=== PATIENT | female | born 1990 | race Caucasian/White ===

== ENCOUNTER 2020-04-01 18:39 | Emergency (ER) | payer OTHER ==
[~2020-04-01] VITALS: Ht 160 cm; Wt 78.9 kg
[~2020-04-01 18:39] MED LIST: ACHD5005 PO; ALBU8.5H2 IH; CPR500T PO; DOXY100C2 PO; IBUP-15 PO; KAOPECTATE; NAPR550T PO; NITR100C3 PO; PRD20T PO; PRM25SURX PR; PRM25T PO; SULF1TAB38 PO
[2020-04-01] MEDS ORDERED: fentaNYL INJECTION 100 MCG/2 ML AMP ONE (19:02)
[2020-04-01] MEDS ORDERED: KETOROLAC 30 MG/ML VIAL ONE (19:02)
[2020-04-01] MEDS ORDERED: KETOROLAC 30 MG/ML VIAL IM ONE (19:15)
[2020-04-01] MEDS ORDERED: fentaNYL INJECTION 100 MCG/2 ML AMP IM ONE (19:15)
--- NOTE | 2020-04-01 19:38 | ED Integumentary General ---
General Chief Complaint: Skin/Wound Problems Stated Complaint: DX : PEDRO INFECTION, PAIN Nursing Triage Note: painful area to left inner groin from I/D 03/30/20 Source: patient, family Exam Limitations: no limitations History of Present Illness Date Seen by Provider: Apr 01, 2020 Time Seen by Provider: 19:00 Initial Comments This 30-year-old woman presents to the emergency room as a follow-up to an abscess I&D of the left groin that was performed elsewhere on March 30. 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 She is to follow-up with a surgeon but has not procured an appointment yet. She needs her packing removed. She is having significant pain in this area and is in distress due to the pain. She does not appear to have any cellulitis or inflammation around the abscess. There is no active drainage. They were instructed to pull a centimeter of packing out daily and cut it off. However, she is in so much pain and they cannot do that at home. She is on doxycycline. She has run out of her pain medication. She denies any fevers. Allergies and Home Medications Allergies Coded Allergies: Penicillins (Verified Allergy, Unknown, RASH, 04/01/20) Home Medications Hydrocodone/Acetaminophen 1 Each Tablet, 1 TAB PO Q4H PRN for PAIN-BREAKTHROUGH Prescribed by: KAITLIN CORDOVA on 04/01/201940 Patient Home Medication List Home Medication List Reviewed: Yes Review of Systems Review of Systems Constitutional: no symptoms reported EENTM: no symptoms reported Respiratory: no symptoms reported Cardiovascular: no symptoms reported Gastrointestinal: no symptoms reported Genitourinary: no symptoms reported : No Musculoskeletal: no symptoms reported Skin: see HPI Psychiatric/Neurological: No Symptoms Reported Past Rnpokzd-Xqeezy-Pexdlq Hx Past Med/Social Hx: Reviewed Nursing Past Med/Soc Hx Patient Social History Alcohol Use: Occasionally Uses Drug of Choice: denies Smoking Status: Current Everyday Smoker Type Used: Cigarettes 2nd Hand Smoke Exposure: Yes Recent Infectious Disease Expo: No Recent Hopitalizations: No Immunizations Up To Date Tetanus Booster (TDap): Less than 5yrs Seasonal Allergies Seasonal Allergies: No Past Medical History Surgeries: Yes Gallbladder, Orthopedic, Tubal Ligation Respiratory: No Cardiac: No Neurological: No : 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 Genitourinary: No Gastrointestinal: No Musculoskeletal: No Endocrine: No HEENT: No Cancer: No Psychosocial: No Integumentary: Yes (multiple i/d, multiple MRSA abscesses) Blood Disorders: No Physical Exam Vital Signs Vital Signs - First Documented 04/01/20 18:56 Temp 36.4 Pulse 95 Resp 20 B/P (MAP) 111/64 (80) Pulse Ox 98 O2 Delivery Room Air Capillary Refill : Less Than 3 Seconds General Appearance: WD/WN, mild distress HEENT: normal ENT inspection Cardiovascular: no edema, no murmur, tachycardia Respiratory: lungs clear, normal breath sounds, no respiratory distress Extremities: normal inspection, no pedal edema Neurologic/Psychiatric: manager social II-XII nml as tested, no motor/sensory deficits, alert, normal mood/affect, oriented x 3 Skin: warm/dry, other (Abscess in the left groin with incision open and packing extending out of the incision. There is no inflammation to suggest cellulitis. No active draining.) Progress/Results/Core Measures Results/Orders My Orders Orders - KAITLIN GOMEZ MD Fentanyl Injection (Sublimaze Injection (04/01/20 19:15) Ketorolac Injection (Toradol Injection) (04/01/20 19:15) Rx-Hydrocodone/Apap 5-325 Mg (Rx-Vicodin (04/01/20 19:45) Hydrocodone/Apap 5/325 Tablet (Lortab 5 (04/01/20 19:45) Medications Given in ED Current Medications Medications Dose Ordered Sig/Jacqueline Route Start Time Stop Time Status Last Admin Dose Admin Acetaminophen/ Hydrocodone Bitart 1 ea Q4H PRN PO 04/01/20 19:45 04/01/20 19:48 DC 04/01/20 19:46 1 EA Acetaminophen/ Hydrocodone Bitart 1 tab ONCE ONCE PO 04/01/20 19:45 04/01/20 19:46 DC 04/01/20 19:46 1 TAB Fentanyl Citrate 100 mcg ONCE ONCE IM 04/01/20 19:15 04/01/20 19:16 DC 04/01/20 19:11 100 MCG Ketorolac Tromethamine 30 mg ONCE ONCE IM 04/01/20 19:15 04/01/20 19:16 DC 04/01/20 19:11 30 MG Vital Signs/I&O 2/10/21 2/10/21 18:56 19:46 Temp 36.4 36.5 Pulse 95 79 Resp 20 16 B/P (MAP) 111/64 (80) 106/67 (80) Pulse Ox 98 97 O2 Delivery Room Air Room Air Blood Pressure Mean: 80 Progress Progress Note : Progress Note Patient was in significant amount of pain at the site of the abscess. She was given an injection of Toradol and fentanyl. Packing was then removed and the wound was redressed. We did not repack. Incision was widely open and there was no accumulation of purulent drainage. She was given a take-home pack of hydrocodone and a short prescription of additional hydrocodone. See discharge instructions for further discussion. Departure Impression Primary Impression: Abscess of left groin Disposition: HOME, SELF-CARE Condition: Improved Departure-Patient Inst. Decision time for Depature: 19:37 Referrals: FLORENCIO HARMON MD (PCP) Primary Care Physician Patient Instructions: MRSA (DC), Abscess Incision and Drainage Add. Discharge Instructions: Perform sitz baths for 15 to 20 minutes with Hibiclens soap and warm water 2-3 times a day until the abscess is improving and stops draining. Complete your antibiotics as prescribed. Use ibuprofen up to 600 mg every 6 hours as needed for primary pain control. Add hydrocodone as prescribed for pain not controlled by ibuprofen. Avoid shaving until your abscess has been resolved for several days. Exercise extreme caution when shaving. Always use a fresh razor or sanitized clippers. Wash with Hibiclens (chlorhexidine) soap after shaving. Call with questions or concerns. Return to emergency room if you have worsening condition or develop new symptoms such as fever. All discharge instructions reviewed with patient and/or family. Voiced understanding. Scripts Hydrocodone/Acetaminophen (Hydrocodone-Acetamin 5-325 mg) 1 Each Tablet 1 TAB PO Q4H PRN for PAIN-BREAKTHROUGH, #10 TAB Prov: KAITLIN GOMEZ MD 04/01/20 KAITLIN GOMEZ MD Apr 01, 2020 19:38
[2020-04-01] MEDS ORDERED: ACHD5005 PO (19:40)
[2020-04-01] MEDS ORDERED: RX-HYDROCODONE/APAP 5/325 MG #4 TAB PK PO PRN (19:45)
[2020-04-01] MEDS ORDERED: HYDROcodone/APAP 5 MG/325 MG (LORTAB) TAB PO ONE (19:45)
[2020-04-01 19:46] VITALS: BP 106/67
== END 2020-04-01 19:48 | disposition home or self-care (01) ==
LOC: EDUNIT# 18:39 → ER 18:42
DX: L02.214 Cutaneous abscess of groin (principal); F17.210 Nicotine dependence, cigarettes, uncomplicated; Z88.0 Allergy status to penicillin
CPT/HCPCS: 99284

== ENCOUNTER 2020-08-18 10:14 | Emergency (ER) | payer OTHER ==
[~2020-08-18] VITALS: Ht 160 cm; Wt 78.0 kg
--- NOTE | 2020-08-18 11:09 | ED Abdominal Pain ---
General Chief Complaint: Abdominal/GI Problems Stated Complaint: LOWER BACK PAIN, Nursing Triage Note: ARRIVED VIA WC TO ROOM 06. LEFT SIDED FLANK PAIN STARTING LAST NIGHT. Sepsis Screen: No Definite Risk Source of Information: Patient, Spouse Exam Limitations: No Limitations History of Present Illness Date Seen by Provider: Aug 18, 2020 Time Seen by Provider: 10:52 Initial Comments Patient presents ER by private conveyance from home with chief complaint that at 630 this morning she was awoken with a gripping stabbing pain that was constant in her left lower quadrant abdomen and left flank. She is never had kidney stones before. She is having no hematuria. No vomiting but mild nausea. Rates the pain is a 9 out of 10. She had her gallbladder out and has had problems with abscesses but no other significant medical history beyond asthma. She is having no shortness of breath fever chills diarrhea or constipation. Allergies and Home Medications Allergies Coded Allergies: Penicillins (Verified Allergy, Unknown, RASH, 04/01/20) Home Medications Cephalexin 500 Mg Tablet, 500 MG PO BID Prescribed by: BRIDGER GLEZ on 08/18/20 1304 Hydrocodone/Acetaminophen 1 Each Tablet, 1 TAB PO Q4H PRN for PAIN-BREAKTHROUGH Prescribed by: KAITLIN CORDOVA on 04/01/20 194 Hydrocodone/Acetaminophen 1 Each Tablet, 1 TAB PO Q6H PRN for PAIN-MODERATE (5- 7) Prescribed by: RBIDGER GLEZ on 08/18/20 1304 Ondansetron 4 Mg Tab.rapdis, 4 MG PO Q6H PRN for NAUSEA/VOMITING Prescribed by: BRIDGER GLEZ on 08/18/20 1304 Patient Home Medication List Home Medication List Reviewed: Yes Review of Systems Review of Systems Constitutional: No chills, No fever EENTM: No Blurred Vision, No Double Vision Respiratory: Denies Cough, Denies Shortness of Air Cardiovascular: Denies Chest Pain, Denies Lightheadedness Gastrointestinal: See HPI, Abdominal Pain; Denies Constipated, Denies Diarrhea; Nausea Genitourinary: See HPI; Denies Burning, Denies Discharge Musculoskeletal: No back pain, No joint pain All Other Systems Reviewed Negative Unless Noted: Yes Past Fedapgk-Rmafiu-Delbrl Hx Patient Social History Alcohol Use: Occasionally Uses Drug of Choice: denies Smoking Status: Current Everyday Smoker Type Used: Cigarettes 2nd Hand Smoke Exposure: Yes Recent Infectious Disease Expo: No Recent Hopitalizations: No Immunizations Up To Date Tetanus Booster (TDap): Less than 5yrs Seasonal Allergies Seasonal Allergies: No Past Medical History Surgeries: Yes Gallbladder, Orthopedic, Tubal Ligation Respiratory: No Cardiac: No 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 oz. 73.984955hx; 30.00 BMI Method:Stated General Appearance: WD/WN, moderate distress HEENT: PERRL/EOMI, pharynx normal Neck: full range of motion, normal inspection Respiratory: no respiratory distress, no accessory muscle use Cardiovascular: normal peripheral pulses, regular rate, rhythm Gastrointestinal: normal bowel sounds, soft Extremities: normal range of motion, normal capillary refill Neurologic/Psychiatric: alert, normal mood/affect Skin: normal color, warm/dry Progress/Results/Core Measures Results/Orders Lab Results Laboratory Tests Test 08/18/20 10:35 08/18/20 11:14 Range/Units White Blood Count 8.0 4.3-11.0 10^3/uL Red Blood Count 4.94 3.80-5.11 10^6/uL Hemoglobin 16.4 H 11.5-16.0 g/dL Hematocrit 48 35-52 % Mean Corpuscular Volume 97 80-99 fL Mean Corpuscular Hemoglobin 33 25-34 pg Mean Corpuscular Hemoglobin Concent 34 32-36 g/dL Red Cell Distribution Width 13.4 10.0-14.5 % Platelet Count 240 130-400 10^3/uL Mean Platelet Volume 9.8 9.0-12.2 fL Immature Granulocyte % (Auto) 0 % Neutrophils (%) (Auto) 67 42-75 % Lymphocytes (%) (Auto) 22 12-44 % Monocytes (%) (Auto) 8 0-12 % Eosinophils (%) (Auto) 2 0-10 % Basophils (%) (Auto) 1 0-10 % Neutrophils # (Auto) 5.4 1.8-7.8 10^3/uL Lymphocytes # (Auto) 1.8 1.0-4.0 10^3/uL Monocytes # (Auto) 0.7 0.0-1.0 10^3/uL Eosinophils # (Auto) 0.2 0.0-0.3 10^3/uL Basophils # (Auto) 0.1 0.0-0.1 10^3/uL Immature Granulocyte # (Auto) 0.0 0.0-0.1 10^3/uL Sodium Level 138 135-145 MMOL/L Potassium Level 4.3 3.6-5.0 MMOL/L Chloride Level 105 98-107 MMOL/L Carbon Dioxide Level 23 21-32 MMOL/L Anion Gap 10 5-14 MMOL/L Blood Urea Nitrogen 5 L 7-18 MG/DL Creatinine 0.73 0.60-1.30 MG/DL Estimat Glomerular Filtration Rate > 60 BUN/Creatinine Ratio 7 Glucose Level 96 70-105 MG/DL Calcium Level 9.4 8.5-10.1 MG/DL Corrected Calcium 9.1 8.5-10.1 MG/DL Total Bilirubin 0.7 0.1-1.0 MG/DL Aspartate Amino Transf (AST/SGOT) 19 5-34 U/L Alanine Aminotransferase (ALT/SGPT) 27 0-55 U/L Alkaline Phosphatase 84 40-136 U/L Total Protein 7.4 6.4-8.2 GM/DL Albumin 4.4 3.2-4.5 GM/DL Urine Color YELLOW Urine Clarity CLEAR Urine pH 7.0 5-9 Urine Specific [place] 1.020 1.016-1.022 Urine Protein NEGATIVE NEGATIVE Urine Glucose (UA) NEGATIVE NEGATIVE Urine Ketones NEGATIVE NEGATIVE Urine Nitrite NEGATIVE NEGATIVE Urine Bilirubin NEGATIVE NEGATIVE Urine Urobilinogen 0.2 < = 1.0 MG/DL Urine Leukocyte Esterase 1+ H NEGATIVE Urine RBC (Auto) NEGATIVE NEGATIVE Urine RBC 0-2 /HPF Urine WBC 10-25 H /HPF Urine Squamous Epithelial Cells 5-10 /HPF Urine Crystals NONE /LPF Urine Bacteria MODERATE H /HPF Urine Casts NONE /LPF Urine Mucus NEGATIVE /LPF Urine Culture Indicated YES My Orders Orders - BRIDGER GLEZ Ua Culture If Indicated (08/18/20 11:06) Urine Bedside (08/18/20 11:06) Cbc With Automated Diff (08/18/20 11:06) Comprehensive Metabolic Panel (08/18/20 11:06) Ketorolac Injection (Toradol Injection) (08/18/20 11:15) Ondansetron Injection (Zofran Injectio (08/18/20 11:15) Ct Abd/Pelvis Wo(Kidney Stone) (08/18/20 11:06) Ed Iv/Invasive Line Start (08/18/20 11:06) Ns Iv 500 Ml (Sodium Chloride 0.9%) (08/18/20 11:15) Urine Culture (08/18/20 11:14) Fentanyl Inj (Sublimaze Injection) (08/18/20 11:45) Medications Given in ED Current Medications Medications Dose Ordered Sig/Jacqueline Route Start Time Stop Time Status Last Admin Dose Admin Fentanyl Citrate 50 mcg ONCE ONCE IVP 08/18/20 11:45 08/18/20 11:46 DC 08/18/20 11:46 50 MCG Ketorolac Tromethamine 30 mg ONCE ONCE IVP 08/18/20 11:15 08/18/20 11:16 DC 08/18/20 11:15 30 MG Ondansetron HCl 4 mg ONCE ONCE IVP 08/18/20 11:15 08/18/20 11:16 DC 08/18/20 11:16 4 MG Sodium Chloride 500 ml @ 0 mls/hr Q0M ONCE IV 08/18/20 11:15 08/18/20 11:16 DC 08/18/20 11:17 500 MLS/HR Vital Signs/I&O 08/18/20 08/18/20 10:25 13:10 Temp 36.1 Pulse 78 79 Resp 16 16 B/P (MAP) 147/89 (108) 133/83 Pulse Ox 98 O2 Delivery Room Air Blood Pressure Mean: 108 Progress Progress Note #1: Time: 11:08 Progress Note Suspect kidney stone versus less likely diverticulitis. Plan to get a CT without IV contrast give her 500 of fluids, Toradol, Zofran and check some basic labs. Progress Note #2: Time: 12:56 Progress Note Either a radio nonopaque stone or the stone has passed. No other significant pathology to explain her symptoms on CT or lab. Patient is comfortable now. We are going to let her follow-up with urology outpatient. Diagnostic Imaging Diagonstic Imaging: CT (Without IV contrast kidney stone study) Plain Films/CT/US/NM/MRI: abdomen, pelvis Comments NAME: YAMILE HEALY [facility] REC#: [id number] PT STATUS: REG ER : 1990 PHYSICIAN: BRIDGER GLEZ MD ADMIT DATE: 08/18/20/ER Draft Date of Exam:08/18/20 CT ABD/PELVIS WO(KIDNEY STONE) PROCEDURE: CT abdomen and pelvis without contrast. TECHNIQUE: Multiple contiguous axial images were obtained through the abdomen and pelvis without the use of intravenous contrast. Auto Exposure Controls were utilized during the CT exam to meet ALARA standards for radiation dose reduction. DATE: August 18, 2020. COMPARISON: CT chest, abdomen, and pelvis October 10, 2011. INDICATION: 30-year-old female, left-sided flank pain. Evaluation for renal or ureteral stone. FINDINGS: There are limitations for evaluation of the abdominal organs, neoplastic processes, abscess, and limited evaluation of the vasculature relating to the lack of intravenous contrast. The visualized portions of the lung bases are clear. The heart is not enlarged. There is no pericardial effusion. The liver is unremarkable in size and contour. The patient is status post cholecystectomy. There is no biliary ductal dilation. The main pancreatic duct is not grossly dilated. Limited noncontrast evaluation of the pancreatic parenchyma is unremarkable. The spleen is normal in size. The adrenal glands are unremarkable. There is a 4 mm nonobstructing right renal stone on axial image 32. The urinary collecting systems are not distended. There is no identified ureteral stone. The urinary bladder is underdistended and not well evaluated. The left ovary appears prominent in size. The left adnexa measures roughly 6.6 x 4.6 cm in axial dimension. There is likely at least a cystic left adnexal mass present. There is also a questionable low-attenuation right adnexal mass measuring up to 2.1 cm in size. There is a small amount of free pelvic fluid which is potentially physiologic. The intestinal tract is not distended. There is no evidence to suggest acute appendicitis. There is no free intraperitoneal air. There is no drainable fluid collection. There is no identified abnormally enlarged lymph node in the abdomen or pelvis meeting CT size criteria for adenopathy. There are bilateral L5 pars interarticularis defects without grade 1 anterolisthesis of L5 on S1. IMPRESSION: 1. There is a 4 mm nonobstructing right renal stone. No ureteral stone or hydronephrosis. 2. Nonspecific prominence of the left adnexa with suspicion of a nonspecific left adnexal mass. There is also likely a low-attenuation right adnexal lesion measuring 2.1 cm in size. Further evaluation with pelvic ultrasound is recommended. 3. Small amount of free pelvic fluid which is possibly physiologic. 4. Bilateral L5 pars interarticularis defects without current anterolisthesis of L5 on S1. Dictated on workstation # [id number] Dict: 08/18/20 1142 Trans: 08/18/20 1158 [id number] Interpreted by: FEDERICO GRAMAJO MD Electronically signed by: Reviewed: Reviewed by Me Departure Impression Primary Impression: Kidney stones Disposition: HOME, SELF-CARE Condition: Stable Departure-Patient Inst. Decision time for Depature: 13:01 Referrals: FLORENCIO HARMON MD (PCP/Family) Primary Care Physician CÉSAR BRANDT MD Patient Instructions: Kidney Stone Diet, Kidney Stones (DC) Add. Discharge Instructions: We presume that you passed a kidney stone and was missed before the CT scan was obtained. You can follow-up with the urologist, Dr. Brandt by calling for an appointment. You may also discuss this with your primary care doctor. Expect your symptoms to improve over the next day to 2 days. Tylenol 650 mg every 8 hours as necessary for pain. Ibuprofen 800 mg every 8 hours necessary for pain. Hydrocodone 1 tablet every 6 hours as necessary for breakthrough pain. Hydrocodone will cause drowsiness as well as constipation and you should consider using MiraLAX or Colace to stay regular. Ondansetron/Zofran 1 tablet under the tongue every 6 hours as necessary for nausea or vomiting. Keflex 1 capsule twice a day for the next week to prevent urinary tract infection. Promptly return to the ER if you have fever, new or worsening intractable pain, nausea or other worrisome symptoms. All discharge instructions reviewed with patient and/or family. Voiced understanding. Scripts Cephalexin (Cephalexin) 500 Mg Tablet 500 MG PO BID for 7 Days, #14 TAB 0 Refills Prov: BRIDGER GLEZ 08/18/20 Ondansetron (Ondansetron Odt) 4 Mg Tab.rapdis 4 MG PO Q6H PRN for NAUSEA/VOMITING, #8 TAB 0 Refills Prov: BRIDGER GLEZ 08/18/20 Hydrocodone/Acetaminophen (Hydrocodone-Acetamin 5-325 mg) 1 Each Tablet 1 TAB PO Q6H PRN for PAIN-MODERATE (5-7), #10 TAB 0 Refills Prov: BRIDGER GLEZ 08/18/20 Work/School Note: Work Release Form Date Seen in the Emergency Department: Aug 18, 2020 Return to Work: Aug 20, 2020 Restrictions: No Restrictions Copy Copies To 1: CÉSAR BRANDT MD, TITUS J Aug 18, 2020 11:09
[2020-08-18 11:13] LABS: BASOPHILS # (AUTO) 0.1 10^3/uL (0.0-0.1); BASOPHILS % (AUTO) 1 % (0-10); EOSINOPHILS # (AUTO) 0.2 10^3/uL (0.0-0.3); EOSINOPHILS % (AUTO) 2 % (0-10); HEMATOCRIT 48 % (35-52); HEMOGLOBIN 16.4 g/dL (11.5-16.0); LYMPHOCYTES # (AUTO) 1.8 10^3/uL (1.0-4.0); LYMPHOCYTES % (AUTO) 22 % (12-44); MEAN CORPUSCULAR HEMOGLOBIN 33 pg (25-34); MEAN CORPUSCULAR HGB CONC 34 g/dL (32-36); MEAN CORPUSCULAR VOLUME 97 fL (80-99); MEAN PLATELET VOLUME 9.8 fL (9.0-12.2); MONOCYTES # (AUTO) 0.7 10^3/uL (0.0-1.0); MONOCYTES % (AUTO) 8 % (0-12); NEUTROPHILS # (AUTO) 5.4 10^3/uL (1.8-7.8); NEUTROPHILS % (AUTO) 67 % (42-75); PLATELET COUNT 240 10^3/uL (130-400)
[2020-08-18 11:14] LABS: ALBUMIN 4.4 GM/DL (3.2-4.5); CHLORIDE 105 MMOL/L (98-107)
[2020-08-18 11:15] LABS: POTASSIUM 4.3 MMOL/L (3.6-5.0); SODIUM 138 MMOL/L (135-145)
[2020-08-18] MEDS ORDERED: ONDANSETRON 4 MG/2 ML (SDV) Z0FRAN IVP ONE (11:15)
[2020-08-18] MEDS ORDERED: KETOROLAC 30 MG/ML VIAL IVP ONE (11:15)
[2020-08-18] MEDS ORDERED: NS IV 500 ML 500 ML IV ONE (11:15)
[2020-08-18 11:16] LABS: CALCIUM 9.4 MG/DL (8.5-10.1)
[2020-08-18 11:17] LABS: GLUCOSE 96 MG/DL (70-105); TOTAL PROTEIN 7.4 GM/DL (6.4-8.2)
[2020-08-18 11:18] LABS: CARBON DIOXIDE 23 MMOL/L (21-32)
[2020-08-18 11:19] LABS: BILIRUBIN,TOTAL 0.7 MG/DL (0.1-1.0)
[2020-08-18 11:19] LABS: BILIRUBIN,URINE NEGATIVE (NEGATIVE); CLARITY,URINE CLEAR; COLOR,URINE YELLOW; GLUCOSE, URINE (UA) NEGATIVE (NEGATIVE); KETONES,URINE NEGATIVE (NEGATIVE); LEUKOCYTE ESTERASE ,URINE 1+ (NEGATIVE); NITRITE,URINE NEGATIVE (NEGATIVE); PROTEIN,URINE NEGATIVE (NEGATIVE)
[2020-08-18 11:20] LABS: ALKALINE PHOSPHATASE 84 U/L (40-136); CREATININE SERUM 0.73 MG/DL (0.60-1.30); GFR ESTIMATED > 60
[2020-08-18 11:21] LABS: BUN/CREATININE RATIO 7
[2020-08-18 11:23] LABS: ALANINE AMINOTRANSFERASE 27 U/L (0-55)
[2020-08-18 11:26] LABS: BACTERIA,URINE MODERATE /HPF; RBC,URINE 0-2 /HPF
[2020-08-18] MEDS ORDERED: fentaNYL INJ 100 MCG/2 ML AMP IVP ONE (11:45)
--- NOTE | 2020-08-18 11:59 | Diagnostic Imaging Report ---
PROCEDURE: CT abdomen and pelvis without contrast. TECHNIQUE: Multiple contiguous axial images were obtained through the abdomen and pelvis without the use of intravenous contrast. Auto Exposure Controls were utilized during the CT exam to meet ALARA standards for radiation dose reduction. DATE: August 18, 2020. COMPARISON: CT chest, abdomen, and pelvis October 10, 2011. INDICATION: 30-year-old female, left-sided flank pain. Evaluation for renal or ureteral stone. FINDINGS: There are limitations for evaluation of the abdominal organs, neoplastic processes, abscess, and limited evaluation of the vasculature relating to the lack of intravenous contrast. The visualized portions of the lung bases are clear. The heart is not enlarged. There is no pericardial effusion. The liver is unremarkable in size and contour. The patient is status post cholecystectomy. There is no biliary ductal dilation. The main pancreatic duct is not grossly dilated. Limited noncontrast evaluation of the pancreatic parenchyma is unremarkable. The spleen is normal in size. The adrenal glands are unremarkable. There is a 4 mm nonobstructing right renal stone on axial image 32. The urinary collecting systems are not distended. There is no identified ureteral stone. The urinary bladder is underdistended and not well evaluated. The left ovary appears prominent in size. The left adnexa measures roughly 6.6 x 4.6 cm in axial dimension. There is likely at least a cystic left adnexal mass present. There is also a questionable low-attenuation right adnexal mass measuring up to 2.1 cm in size. There is a small amount of free pelvic fluid which is potentially physiologic. The intestinal tract is not distended. There is no evidence to suggest acute appendicitis. There is no free intraperitoneal air. There is no drainable fluid collection. There is no identified abnormally enlarged lymph node in the abdomen or pelvis meeting CT size criteria for adenopathy. There are bilateral L5 pars interarticularis defects without grade 1 anterolisthesis of L5 on S1. IMPRESSION: 1. There is a 4 mm nonobstructing right renal stone. No ureteral stone or hydronephrosis. 2. Nonspecific prominence of the left adnexa with suspicion of a nonspecific left adnexal mass. There is also likely a low-attenuation right adnexal lesion measuring 2.1 cm in size. Further evaluation with pelvic ultrasound is recommended. 3. Small amount of free pelvic fluid which is possibly physiologic. 4. Bilateral L5 pars interarticularis defects without current anterolisthesis of L5 on S1. Dictated by: Dictated on workstation # [id number]
[2020-08-18] MEDS ORDERED: CEPH500T PO (13:04)
[2020-08-18] MEDS ORDERED: ONDA4TAB11 PO (13:04)
[2020-08-18] MEDS ORDERED: ACHD5005 PO (13:04)
[2020-08-18 13:10] VITALS: BP 133/83
== END 2020-08-18 13:10 | disposition home or self-care (01) ==
LOC: EDUNIT# 10:14 → ER 10:16
DX: N20.0 Calculus of kidney (principal); J45.909 Unspecified asthma, uncomplicated; F17.210 Nicotine dependence, cigarettes, uncomplicated
CPT/HCPCS: 36415; 74176; 80053; 81000; 84703; 85025; 87088; 96374; 96375

== ENCOUNTER → 2020-08-25 | Outpatient (CLI) | payer OTHER ==
[~2020-08-25] MED LIST changes: +CEPH500T PO; +ONDA4TAB11 PO
--- NOTE | 2020-08-25 13:21 | Diagnostic Imaging Report ---
EXAMINATION: Supine abdomen at 1:03 PM. INDICATION: Nephrolithiasis. FINDINGS: The CT abdomen/pelvis exam of 08/18/2020 noted a 4 mm nonobstructive calculus within the right kidney. There was no other evidence for nephrolithiasis or urolithiasis. On this exam, there is a 3.65 mm calcification overlying the superior pole of the right kidney. This would correspond to the finding on the CT exam. There is no other evidence for nephrolithiasis. There is no sign of a calculus along the path of the ureters either. There is no acute abnormality in the abdomen or pelvis noted otherwise. IMPRESSION: 1. The nonobstructive calculus within the right kidney seen previously is again evident and does not appear to have changed significantly. 2. There is still no evidence for nephrolithiasis in the left kidney or for urolithiasis. Dictated by: Dictated on workstation # [id number]
== END ==
LOC: RAD 12:41
PROVIDERS: ATTEND Urology
DX: N20.0 Calculus of kidney (principal)
CPT/HCPCS: 74018

== ENCOUNTER → 2020-09-21 | Outpatient (CLI) | payer OTHER ==
[~2020-09-21] MED LIST changes: +RT-ALBUTEROL SULF 2.5 MG/3 ML PRE-MIX VIAL INH ONE
== END ==
LOC: RT 09:30
PROVIDERS: ATTEND Nurse Practitioner Family
DX: J45.40 Moderate persistent asthma, uncomplicated (principal)
CPT/HCPCS: 94060; 94726; 94729

== ENCOUNTER → 2020-09-30 | Outpatient (CLI) | payer OTHER ==
[~2020-09-30] MED LIST changes: +ACET-93 PO; +BUDE10.2 IH; +CARAFATE; +CETI10TA49 PO; +NRT10C PO; +OXC5T PO; +PRILOSEC; -RT-ALBUTEROL SULF 2.5 MG/3 ML PRE-MIX VIAL INH ONE; +VITAMIN B12; +WELLBUTRIN
--- NOTE | 2020-09-30 13:08 | Diagnostic Imaging Report ---
PROCEDURE: Pelvic comp/transvaginal sonogram. TECHNIQUE: Complete transabdominal and transvaginal pelvic ultrasound was performed. In addition, limited pelvic Doppler was performed. INDICATION: Left sided pelvic pain. Uterus is anteverted measuring 8.4 x 4.3 x 4.7 cm. Endometrium is 6 cm in thickness. No myometrial mass is detected. Right ovary measures 4.2 x 2.8 x 3.0 cm, the left ovary measures 4.3 x 2.4 x 3.1 cm. There appears be a complex left ovarian cyst measuring 2.5 x 2.1 x 2.0 cm. There is blood flow to both ovaries. No free fluid is detected. IMPRESSION: Complex left ovarian cyst, likely hemorrhagic. The study is otherwise unremarkable. Dictated by: Dictated on workstation # [id number]
== END ==
LOC: RAD 11:30
PROVIDERS: ATTEND Obstetrics & Gynecology
DX: N83.202 Unspecified ovarian cyst, left side (principal)
CPT/HCPCS: 76830; 76856

== ENCOUNTER 2020-10-02 11:23 | Day surgery (SDC) | payer OTHER ==
[2020-10-02] VITALS (10 sets, daily range): BP systolic 113–143; BP diastolic 71–102
[~2020-10-02] VITALS: Ht 160.2 cm; Wt 80.9 kg
[~2020-10-02 11:23] MED LIST changes: -ACET-93 PO; -BUDE10.2 IH; -CARAFATE; -CETI10TA49 PO; -NRT10C PO; -OXC5T PO; -PRILOSEC; -VITAMIN B12; -WELLBUTRIN
[2020-10-02] MEDS ORDERED: ceFAZolin 2 GM IV Premixed 50 ML ONE (11:41)
[2020-10-02] MEDS ORDERED: BUPIVACAINE 0.25% 30 ML (SENSORCAINE) VIAL ONE (11:49)
[2020-10-02] MEDS ORDERED: proPOfol 200 MG/20 ML (DIPRIVAN) VIAL IV ONE ×2 (11:56→14:16)
[2020-10-02] MEDS ORDERED: LIDOCAINE PF 2% 5 ML (XYLOCAINE) VIAL ONE (11:56)
[2020-10-02] MEDS ORDERED: ROCURONIUM 10 MG/ML 5 ML SYRINGE IV ONE (11:56)
[2020-10-02] MEDS ORDERED: ONDANSETRON 4 MG/2 ML (SDV) Z0FRAN ONE (11:56)
[2020-10-02] MEDS ORDERED: fentaNYL INJ 100 MCG/2 ML AMP ONE (11:59)
[2020-10-02] MEDS ORDERED: MIDAZOLAM 2 MG/2 ML (VERSED) VIAL ONE (11:59)
[2020-10-02] MEDS ORDERED: ceFAZolin 2 GM IV Premixed 50 ML IV ONE (12:00)
[2020-10-02] MEDS: LACTATED RINGERS 1,000 ML IV PRN ×2 (12:01→14:20)
[2020-10-02] MEDS ORDERED: PRILOSEC (12:46)
[2020-10-02] MEDS ORDERED: WELLBUTRIN (12:46)
[2020-10-02] MEDS ORDERED: CARAFATE (12:46)
[2020-10-02] MEDS ORDERED: VITAMIN B12 (12:46)
[2020-10-02] MEDS ORDERED: CETI10TA49 PO (12:46)
[2020-10-02] MEDS ORDERED: NRT10C PO (12:46)
[2020-10-02] MEDS ORDERED: BUDE10.2 IH (12:46)
--- NOTE | 2020-10-02 13:35 | Progress Note-Pre Operative ---
Pre-Operative Progress Note H&P Reviewed The H&P was reviewed, patient examined and no changes noted. Date Seen by Provider: Oct 02, 2020 Time Seen by Provider: 13:15 Date H&P Reviewed: Oct 02, 2020 Time H&P Reviewed: 13:15 Pre-Operative Diagnosis: complex left ovarian cyst, pelvic pain DAVIE BLAS DO Oct 02, 2020 13:35
[2020-10-02] MEDS ORDERED: morphine INJ 10 MG/ML 1ML (SYR OR VIAL) ONE ×2 (14:13→14:45)
[2020-10-02] MEDS ORDERED: SEVOFLURANE (ULTANE) 15 ML INHAL SOLN ONE (14:16)
[2020-10-02] MEDS ORDERED: KETOROLAC 30 MG/ML VIAL IVP NR (14:30)
[2020-10-02] MEDS ORDERED: ACETAMINOPHEN 500 MG TAB (TYLENOL) PO PRN (14:30)
--- NOTE | 2020-10-02 14:30 | Operative Report ---
Operative Report Date of Procedure/Surgery Oct 02, 2020 Surgeon (s) DAVIE BLAS DO [employer] As[employer]er (s): NA Post-Operative Diagnosis Complex left adnexal cyst (ovarian) with left tubal remnant and morgagnian cyst Procedure Performed Laparoscopy with left oophorectomy Description of Procedure Anesthesia Type: General Estimated blood loss (mL): minimal Specimen(s) collected/removed Left ovary and partial tube Description of the Procedure with informed consent the patient was taken to the operating room where general anesthesia was found to be adequate. She was then prepped and draped in the usual sterile fashion in the dorsolithotomy position. The bladder was then drained of clear, yellow urine. A speculum was placed in the vagina and the cervix was grasped with a tenaculum. A uterine manipulator was then placed. Attention was then turned to the abdomen where the umbilicus was injected with 0.5% Marcaine. A 5 mm skin incision was made and a Veress needle was inserted. Intraabdominal placement was confirmed with a saline drop test and a drop in pressure. The abdomen was then insufflated with warmed CO2 gas to a maximum pressure of 15 mmHg. A 5 mm trocar was then placed under direct visualization with the optiview. I then did a survey of the pelvis. She had a tubal remnant and a tubal cyst on the left adnexa and a complex ovarian cyst. Two additional trocars were placed in the left lower quadrant, lateral to the r ectus muscles and avoiding the inferior epigastric vessels. I then removed the left tubal remnant and the left ovary by clamping, transecting and cauterizing the left infundibulopelvic ligament and then the uterine ovarian ligament. This was done with the Harmonic scalpel. I then extended the umbilical incision to a allow insertion of a 12 mm trocar. I inserted an Endocatch and removed the ovary and tube. I then removed the gas and the instruments from the abdomen. I closed the periumbilical fascial incision with 0-Vicryl in a running fashion. I then closed the skin incisions with 4-0 Monocryl in a subcuticular fashion. I then removed the uterine manipulator and the instruments from the vagina. The patient was now awakened and taken to recovery in a stable fashion. Sponge, laparotomy sponges, needle and instrument counts were correct times two. Findings of the Procedure complex left ovarian cyst with at least 4 separate cystic areas, Some internal debris Also a morgagnian cyst on the fibria evidence of tubal ligation bilaterally psysiologic peritoneal fluid Allergies and Home Medications Allergies Coded Allergies: Penicillins (Verified Allergy, Unknown, RASH, 10/02/20) Home Medications Acetaminophen 500 Mg Tablet, 1,000 MG PO Q8H PRN for PAIN-MILD (1-4) Prescribed by: DAVIE BLAS on 10/02/20 1438 Budesonide/Formoterol Fumarate 10.2 Gm Hfa.aer.ad, 2 PUFF IH BID, (Reported) Last Action: New Order Cetirizine HCl 10 Mg Tablet, 10 MG PO DAILY, (Reported) Last Action: New Order Nortriptyline HCl 10 Mg Capsule, 10 MG PO HS, (Reported) Last Action: New Order Ondansetron 4 Mg Tab.rapdis, 4 MG PO Q8H Prescribed by: DAVIE BLAS on 10/02/20 1623 Oxycodone Hcl 5 Mg Tab, 5 MG PO Q4H PRN for PAIN-SEVERE (8-10) Prescribed by: DAVIE BLAS on 10/02/20 1438 Patient Home Medication List Home Medication List Reviewed: Yes DAVIE BLAS DO Oct 02, 2020 14:30
--- NOTE | 2020-10-02 14:37 | Discharge Inst-Women's Service ---
Discharge Inst-Women's Serv Depart Medication/Instructions New, Converted or Re-Newed RX: Transmitted to Pharmacy Final Diagnosis complex left ovarian cystectomy left tubal morgagnian cyst Problems Reviewed?: Yes Consults/Follow Up Additional Follow Up: Yes (appt with Dr. Pierre for follow up in 2-3 weeks) Activity Activity: Activity as Tolerated Driving Instructions: No Driving for 24 Hours NO SMOKING: NO SMOKING Nothing Inside Vagina: No Douching, No Tampons Diet Discharge Diet: No Restrictions Symptoms to Report to : Bleeding Excessive, Pain Increased, Fever Over 101 Degrees F, Vaginal Bleeding Increase, Vaginal Discharge Foul For Any Problems or Questions: Contact Your Physician Skin/Wound Care Infection Signs and Symptoms: Increased Redness, Foul Odor of Wound, Increased Drainage, Skin Itchy or Has a Rash, Increased Swelling, Temperature Above 101 F Operative Area Clean and Dry: Keep Incision Clean/Dry, You May Remove Bandage (remove bandage in 2-3 days or if soiled/wet) Stitches/[employer]/Dermabond: Dermabond Bathing Instructions: DAVIE Oro DO Oct 02, 2020 14:36
[2020-10-02] MEDS ORDERED: ACET-93 PO (14:38)
[2020-10-02] MEDS ORDERED: OXC5T PO (14:38)
[2020-10-02] MEDS ORDERED: fentaNYL INJ 100 MCG/2 ML AMP IVP ONE (14:45)
[2020-10-02] MEDS ORDERED: MEPERIDINE (DEMEROL) INJ 50 MG/ML IVP ONE (14:45)
[2020-10-02] MEDS ORDERED: HYDROmorphone 2 MG/ML VIAL (DILAUDID) IV ONE (14:45)
[2020-10-02] MEDS ORDERED: ONDANSETRON 4 MG/2 ML (SDV) Z0FRAN IVP PRN (14:45)
[2020-10-02] MEDS ORDERED: morphine INJ 10 MG/ML 1ML (SYR OR VIAL) IVP ONE (14:45)
--- NOTE | 2020-10-02 14:45 | Anesthesia-General Post-Op ---
General Patient Condition Mental Status/LOC: Same as Preop Cardiovascular: Satisfactory Nausea/Vomiting: Absent Respiratory: Satisfactory Pain: Controlled Complications: Absent Post Op Complications Complications None Follow Up Care/Instructions Patient Instructions None needed. Anesthesia/Patient Condition Patient Condition Patient is doing well, no complaints, stable vital signs, no apparent adverse anesthesia problems. No complications reported per nursing. MATT POSADA CRNA Oct 02, 2020 14:45
[2020-10-02] MEDS ORDERED: ONDA4TAB11 PO (16:23)
[2020-10-02] MEDS ORDERED: ONDANSETRON 4 MG/2 ML (SDV) Z0FRAN IVP ONE (16:30)
== END 2020-10-02 16:55 | disposition home or self-care (01) ==
LOC: SDC 11:23
PROVIDERS: ATTEND Obstetrics & Gynecology
DX: N83.292 Other ovarian cyst, left side (principal); N83.8 Other noninflammatory disorders of ovary, fallopian tube and broad ligament; Q50.5 Embryonic cyst of broad ligament; F32.9 Major depressive disorder, single episode, unspecified; J45.909 Unspecified asthma, uncomplicated; K21.9 Gastro-esophageal reflux disease without esophagitis; F17.210 Nicotine dependence, cigarettes, uncomplicated; K25.9 Gastric ulcer, unspecified as acute or chronic, without hemorrhage or perforation; Z87.442 Personal history of urinary calculi; Z79.899 Other long term (current) drug therapy; Z98.51 Tubal ligation status
CPT/HCPCS: 36430; 84703; 87081; 88305

== ENCOUNTER 2020-12-13 18:55 | Emergency (ER) | payer OTHER ==
[~2020-12-13] VITALS: Ht 160 cm; Wt 83.0 kg
[~2020-12-13 18:55] MED LIST changes: +ACET-93 PO; +BUDE10.2 IH; +CARAFATE; +CETI10TA49 PO; +NRT10C PO; +OXC5T PO; +PRILOSEC; +VITAMIN B12; +WELLBUTRIN
[2020-12-13] MEDS ORDERED: HOLD METFORMIN - RECEIVED CONTRAST 20 ML VIAL IV SCH (19:30)
[2020-12-13] MEDS ORDERED: NS 100 ML (IVPB) BAG IV ONE (19:30)
[2020-12-13] MEDS ORDERED: IOHEXOL 350 MG/ML 100 ML (OMNIPAQUE 350) VIAL IV ONE (19:30)
[2020-12-13] MEDS ORDERED: ONDANSETRON 4 MG/2 ML (SDV) Z0FRAN IVP ONE (20:00)
[2020-12-13 20:01] LABS: BASOPHILS % (AUTO) 1 % (0-10); EOSINOPHILS # (AUTO) 0.1 10^3/uL (0.0-0.3); EOSINOPHILS % (AUTO) 2 % (0-10); HEMATOCRIT 40 % (35-52); HEMOGLOBIN 13.9 g/dL (11.5-16.0); LYMPHOCYTES # (AUTO) 2.1 10^3/uL (1.0-4.0); LYMPHOCYTES % (AUTO) 33 % (12-44); MEAN CORPUSCULAR HEMOGLOBIN 33 pg (25-34); MEAN CORPUSCULAR HGB CONC 35 g/dL (32-36); MEAN CORPUSCULAR VOLUME 96 fL (80-99); MEAN PLATELET VOLUME 9.4 fL (9.0-12.2); MONOCYTES # (AUTO) 0.4 10^3/uL (0.0-1.0); MONOCYTES % (AUTO) 6 % (0-12); NEUTROPHILS # (AUTO) 3.6 10^3/uL (1.8-7.8); NEUTROPHILS % (AUTO) 58 % (42-75); PLATELET COUNT 228 10^3/uL (130-400); WHITE BLOOD COUNT 6.3 10^3/uL (4.3-11.0)
[2020-12-13 20:11] LABS: BILIRUBIN,TOTAL 0.4 MG/DL (0.1-1.0); CALCIUM 8.8 MG/DL (8.5-10.1); CREATININE SERUM 0.7 MG/DL (0.60-1.30); POTASSIUM 3.7 MMOL/L (3.6-5.0); TOTAL PROTEIN 6.2 GM/DL (6.4-8.2)
[2020-12-13] MEDS ORDERED: NS IV 1000 ML 1,000 ML IV ONE (20:30)
[2020-12-13] MEDS ORDERED: PROMETHAZINE INJ 25 MG/ML (PHENERGAN) AMP IVP ONE (20:30)
--- NOTE | 2020-12-13 20:33 | Diagnostic Imaging Report ---
PROCEDURE: CT abdomen and pelvis with contrast. TECHNIQUE: Multiple contiguous axial images were obtained through the abdomen and pelvis after administration of intravenous contrast. Auto Exposure Controls were utilized during the CT exam to meet ALARA standards for radiation dose reduction. All CT scans use one or more of the following dose optimizing techniques: automated exposure control, MA and/or KvP adjustment based on patient size and exam type or iterative reconstruction. INDICATION: Perirectal abscess. COMPARISON: Previous CT examination from August 18, 2020. FINDINGS: The lung bases demonstrate no findings of pneumonia or edema. Is no pleural or pericardial effusion. The liver demonstrates no focal abnormality. Patient is status post cholecystectomy. There is mild postcholecystectomy biliary prominence. This is unchanged. There is no radiodense stone within the common bile duct. Pancreas unremarkable without mass or ductal dilatation but there are no adjacent inflammatory changes. The spleen is normal in size. There is no adrenal mass. The kidneys enhance normally and appear nonobstructed. There is no perinephric fat stranding. The stomach is nondistended. There are a few fluid-filled loops of small bowel. There are no findings of bowel dilation to suggest obstruction. The colon is decompressed. There is no focal colonic thickening or evidence of adjacent pericolonic fat stranding. There is no focal inflammation within the right lower quadrant and the appendix is normal. There is no pelvic free fluid. There again is a right-sided adnexal lesion which is most likely reflective of a recurrent or persistent hemorrhagic cyst. This now measures up to approximately 4.7 cm. There are no findings of focal inflammation about the rectum or evidence of a perirectal abscess. There is no significant inflammatory change along the gluteal cleft. No findings of abdominal or pelvic adenopathy. Aorta is normal in caliber. There is no acute or suspicious osseous abnormality. IMPRESSION: 1. No CT findings to suggest a perirectal abscess. 2. No findings of bowel obstruction. 3. No appendicitis. 4. Large right adnexal low-density lesion most likely reflective of ovarian cyst. Previous hemorrhagic cyst demonstrated on comparison ultrasound. There is a similar but smaller lesion on CT from July 2020. Follow-up with repeat ultrasound could be considered for reassessment. 5. Previous cholecystectomy with stable post cholecystectomy biliary prominence. Dictated by: Dictated on workstation # [id number]
[2020-12-13] MEDS ORDERED: CLIN300C12 PO (20:37)
--- NOTE | 2020-12-13 20:37 | ED Integumentary General ---
General Chief Complaint: Skin/Wound Problems Stated Complaint: GROIN ABSCESS Nursing Triage Note: PT AMB TO ED BY POV WITH C/O ABCESS ON L GROIN AREA. PT WAS TREATED FOR ABCESS BY [facility] AND FINISHED A 10 DAY COURSE OF BACTRUM ON MONDAY. ABCESS RETURNED TODAY. AREA IS RED AND PT RATES PAIN 8/10 AND DESCRIBES IT "THROBBING." Source: patient Exam Limitations: no limitations History of Present Illness Date Seen by Provider: Dec 13, 2020 Time Seen by Provider: 20:33 Initial Comments This is a well appearing 30 yo female who presented to the ER with c/o abscess o n her left buttock. Allergies and Home Medications Allergies Coded Allergies: Penicillins (Verified Allergy, Unknown, RASH, 10/02/20) Patient Home Medication List Acetaminophen (Acetaminophen) 500 Mg Tablet, 1,000 MG PO Q8H PRN for PAIN-MILD (1-4) Prescribed by: DAVIE BLAS on 10/02/20 1438 Budesonide/Formoterol Fumarate (Symbicort 160-4.5 Mcg Inhaler) 10.2 Gm Hfa.aer.ad, 2 PUFF IH BID, (Reported) Entered as Reported by: KAYLEEN WEINER on 10/02/20 1246 Cetirizine HCl (Zyrtec) 10 Mg Tablet, 10 MG PO DAILY, (Reported) Entered as Reported by: KAYLEEN WEINER on 10/02/20 1246 Clindamycin HCl (Clindamycin HCl) 300 Mg Capsule, 300 MG PO Q8H Prescribed by: JOSÉ SHARP on 12/13/202036 Nortriptyline HCl (Nortriptyline HCl) 10 Mg Capsule, 10 MG PO HS, (Reported) Entered as Reported by: KAYLEEN WEINER on 10/02/20 1246 Ondansetron (Ondansetron Odt) 4 Mg Tab.rapdis, 4 MG PO Q8H Prescribed by: DAVIE BLAS on 10/02/20 1623 Oxycodone Hcl (Oxyir Tablet) 5 Mg Tab, 5 MG PO Q4H PRN for PAIN-SEVERE (8-10) Prescribed by: DAVIE BLAS on 10/02/20 1438 [Carafate] , (Reported) Entered as Reported by: KAYLEEN WEINER on 10/02/20 1246 [Prilosec] , (Reported) Entered as Reported by: KAYLEEN WEINER on 10/02/20 124 [Vitamin B12] , (Reported) Entered as Reported by: KAYLEEN WEINER on 10/02/201245 [Wellbutrin] , (Reported) Entered as Reported by: KAYLEEN WEINER on 10/02/201245 Past Cjplaxz-Kvhdql-Ovnepd Hx Patient Social History Tobacco Use?: Yes Tobacco type used: Cigarettes Smoking Status: Current Everyday Smoker Substance use?: Yes Substance type: Marijuana Substance frequency: Daily Alcohol Use?: Yes Alcohol type: Hard Liquor Alcohol Frequency: Daily Pt feels they are or have been: No Immunizations Up To Date Tetanus Booster (TDap): Less than 5yrs Influenza Vaccine Up-to-Date: No; Not Current First/Initial COVID19 Vaccinat: August 2020 Second COVID19 Vaccination Lj: Sep 2020 COVID19 Vaccine Marketing Content Coordinator: Moderna Seasonal Allergies Seasonal Allergies: No Past Medical History Surgeries: Yes Gallbladder, Orthopedic, Tubal Ligation Respiratory: No Cardiac: No Neurological: No Last Menstrual Period: Nov 24, 2020 [employer]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 Genitourinary: No Gastrointestinal: Yes Gastroesophageal Reflux Musculoskeletal: No Endocrine: No HEENT: No Cancer: No Psychosocial: Yes Depression Integumentary: Yes (multiple i/d, multiple MRSA abscesses) Blood Disorders: No Physical Exam Vital Signs Vital Signs - First Documented 12/13/20 19:00 Temp 36.3 Pulse 86 Resp 18 B/P (MAP) 137/83 (101) Pulse Ox 97 O2 Delivery Room Air Capillary Refill : Less Than 3 Seconds Progress/Results/Core Measures Results/Orders Lab Results Laboratory Tests Test 12/13/20 19:25 Range/Units White Blood Count 6.3 4.3-11.0 10^3/uL Red Blood Count 4.19 3.80-5.11 10^6/uL Hemoglobin 13.9 11.5-16.0 g/dL Hematocrit 40 35-52 % Mean Corpuscular Volume 96 80-99 fL Mean Corpuscular Hemoglobin 33 25-34 pg Mean Corpuscular Hemoglobin Concent 35 32-36 g/dL Red Cell Distribution Width 14.1 10.0-14.5 % Platelet Count 228 130-400 10^3/uL Mean Platelet Volume 9.4 9.0-12.2 fL Immature Granulocyte % (Auto) 1 % Neutrophils (%) (Auto) 58 42-75 % Lymphocytes (%) (Auto) 33 12-44 % Monocytes (%) (Auto) 6 0-12 % Eosinophils (%) (Auto) 2 0-10 % Basophils (%) (Auto) 1 0-10 % Neutrophils # (Auto) 3.6 1.8-7.8 10^3/uL Lymphocytes # (Auto) 2.1 1.0-4.0 10^3/uL Monocytes # (Auto) 0.4 0.0-1.0 10^3/uL Eosinophils # (Auto) 0.1 0.0-0.3 10^3/uL Basophils # (Auto) 0.0 0.0-0.1 10^3/uL Immature Granulocyte # (Auto) 0.0 0.0-0.1 10^3/uL Sodium Level 141 135-145 MMOL/L Potassium Level 3.7 3.6-5.0 MMOL/L Chloride Level 108 H 98-107 MMOL/L Carbon Dioxide Level 21 21-32 MMOL/L Anion Gap 12 5-14 MMOL/L Blood Urea Nitrogen 8 7-18 MG/DL Creatinine 0.70 0.60-1.30 MG/DL Estimat Glomerular Filtration Rate 98 BUN/Creatinine Ratio 11 Glucose Level 89 70-105 MG/DL Calcium Level 8.8 8.5-10.1 MG/DL Corrected Calcium 8.8 8.5-10.1 MG/DL Total Bilirubin 0.4 0.1-1.0 MG/DL Aspartate Amino Transf (AST/SGOT) 22 5-34 U/L Alanine Aminotransferase (ALT/SGPT) 26 0-55 U/L Alkaline Phosphatase 83 40-136 U/L Total Protein 6.2 L 6.4-8.2 GM/DL Albumin 4.0 3.2-4.5 GM/DL My Orders Orders - JOSÉ SHARP DRIVER TRAINEE Ct Abdomen/Pelvis W (12/13/20 19:19) Ed Iv/Invasive Line Start (12/13/20 19:19) Cbc With Automated Diff (12/13/20 19:19) Comprehensive Metabolic Panel (12/13/20 19:19) Iohexol Injection (Omnipaque 350 Mg/Ml 1 (12/13/20 19:30) Received Contrast (Hold Metformin- Contr (12/13/20 19:30) Ns (Ivpb) (Sodium Chloride 0.9% Ivpb Bag (12/13/20 19:30) Ondansetron Injection (Zofran Injectio (12/13/20 20:00) Promethazine Injection (Phenergan Injec (12/13/20 20:30) Ns Iv 1000 Ml (Sodium Chloride 0.9%) (12/13/20 20:30) Medications Given in ED Current Medications Medications Dose Ordered Sig/Jacqueline Route Start Time Stop Time Status Last Admin Dose Admin Iohexol 100 ml ONCE ONCE IV 12/13/20 19:30 12/13/20 19:31 DC 12/13/20 19:35 100 ML Ondansetron HCl 4 mg ONCE ONCE IVP 12/13/20 20:00 12/13/20 20:01 DC 12/13/20 20:05 4 MG Promethazine HCl 25 mg ONCE ONCE IVP 12/13/20 20:30 12/13/20 20:31 DC 12/13/20 20:37 25 MG Sodium Chloride 100 ml ONCE ONCE IV 12/13/20 19:30 12/13/20 19:31 DC 12/13/20 19:35 80 ML Sodium Chloride 1,000 ml @ 999 mls/hr ONCE ONCE IV 12/13/20 20:30 12/13/20 21:30 12/13/20 20:37 999 MLS/HR Vital Signs/I&O 12/13/20 19:00 Temp 36.3 Pulse 86 Resp 18 B/P (MAP) 137/83 (101) Pulse Ox 97 O2 Delivery Room Air Blood Pressure Mean: 101 Departure Impression Primary Impression: Gluteal abscess Disposition: 01 HOME, SELF-CARE Condition: Improved Departure-Patient Inst. Decision time for Depature: 20:34 Referrals: FLORENCIO HARMON MD (PCP/Family) Primary Care Physician Patient Instructions: Abscess Incision and Drainage Add. Discharge Instructions: Plan: 1. Follow up with your doctor next week. 2. Wash gently with mild soap and water. Keep area as clean. May wear pad to absorb drainage, change frequently. 3. Take antibiotics as directed and complete full course. 4. May take Tylenol or Ibuprofen as needed for pain per package. 5. Return to ER for any new, concerning, or worsening symptoms. All discharge instructions reviewed with patient and/or family. Voiced understanding. Scripts Clindamycin HCl (Clindamycin HCl) 300 Mg Capsule 300 MG PO Q8H for 7 Days, #21 CAP 0 Refills Prov: JOSÉ SHARP APRN 12/13/20 JOSÉ SHARP APRN Dec 13, 2020 20:37
[2020-12-13] MEDS ORDERED: CLINDAMYCIN 150 MG (CLEOCIN) CAP PO ONE (21:15)
[2020-12-13] MEDS ORDERED: RX-ONDANSETRON 4 MG ODT (ZOFRAN) PPK #4 PO STA (21:45)
[2020-12-13 21:54] VITALS: BP 118/83
== END 2020-12-13 21:38 | disposition home or self-care (01) ==
LOC: EDUNIT# 18:55 → ER 18:57
DX: L02.31 Cutaneous abscess of buttock (principal); F32.9 Major depressive disorder, single episode, unspecified; F17.210 Nicotine dependence, cigarettes, uncomplicated; Z79.899 Other long term (current) drug therapy
CPT/HCPCS: 10060; 36415; 74177; 80053; 85025

== ENCOUNTER 2020-12-17 14:33 | Emergency (ER) | payer OTHER ==
[~2020-12-17] VITALS: Ht 162.5 cm; Wt 84.0 kg
[~2020-12-17 14:33] MED LIST changes: +CLIN-144 PO
[2020-12-17 14:38] VITALS: BP 137/75
--- NOTE | 2020-12-17 15:09 | ED Upper Extremity ---
General Chief Complaint: Laceration Stated Complaint: THUMB LACERATION Nursing Triage Note: PT AMB TO ED BY POV WITH C/O LAC TO R THUMB. PT STATES SHE CUT FINGER ON PIECE OF GLASS WHILE REACHING AROUND A FLOWER POT. 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 Source: patient Exam Limitations: no limitations History of Present Illness Date Seen by Provider: Dec 17, 2020 Time Seen by Provider: 15:04 Initial Comments Laceration to the side of the proximal phalanx right thumb from a piece of broken glass from her window just prior to arrival. Tetanus is up-to-date. Onset: just prior to arrival Severity: moderate Pain/Injury Location: right thumb Method of Injury: fell Modifying Factors: Worse With Movement Allergies and Home Medications Allergies Coded Allergies: Penicillins (Verified Allergy, Unknown, RASH, 10/02/20) Patient Home Medication List Home Medication List Reviewed: Yes Acetaminophen (Acetaminophen) 500 Mg Tablet, 1,000 MG PO Q8H PRN for PAIN-MILD (1-4) Prescribed by: DAVIE BLAS on 10/02/20 1438 Budesonide/Formoterol Fumarate (Symbicort 160-4.5 Mcg Inhaler) 10.2 Gm Hfa.aer.ad, 2 PUFF IH BID, (Reported) Entered as Reported by: KAYLEEN WEINER on 10/02/20 1246 Cetirizine HCl (Zyrtec) 10 Mg Tablet, 10 MG PO DAILY, (Reported) Entered as Reported by: KAYLEEN WEINER on 10/02/20 1246 Clindamycin HCl (Clindamycin HCl) 300 Mg Capsule, 300 MG PO Q8H Prescribed by: JOSÉ SHARP on 12/13/202036 Nortriptyline HCl (Nortriptyline HCl) 10 Mg Capsule, 10 MG PO HS, (Reported) Entered as Reported by: KAYLEEN WEINER on 10/02/20 1246 Ondansetron (Ondansetron Odt) 4 Mg Tab.rapdis, 4 MG PO Q8H Prescribed by: DAVIE BLAS on 10/02/20 1623 Oxycodone Hcl (Oxyir Tablet) 5 Mg Tab, 5 MG PO Q4H PRN for PAIN-SEVERE (8-10) Prescribed by: DAVIE BLAS on 10/02/20 1438 [Carafate] , (Reported) Entered as Reported by: KAYLEEN WEINER on 10/02/201245 [Prilosec] , (Reported) Entered as Reported by: KAYLEEN Chong HUSAM on 10/02/201245 [Vitamin B12] , (Reported) Entered as Reported by: KAYLEEN Chong WEINER on 10/02/201245 [Wellbutrin] , (Reported) Entered as Reported by: KAYLEEN WEINER on 10/02/201245 Review of Systems Constitutional: see HPI EENTM: see HPI Respiratory: no symptoms reported Cardiovascular: no symptoms reported Genitourinary: no symptoms reported Musculoskeletal: see HPI Skin: no symptoms reported Psychiatric/Neurological: No Symptoms Reported Past Abfklbq-Gpycql-Ylsazk Hx Immunizations Up To Date Tetanus Booster (TDap): Less than 5yrs First/Initial COVID19 Vaccinat: August 2020 Second COVID19 Vaccination Lj: Sep 2020 Seasonal Allergies Seasonal Allergies: No Past Medical History Surgeries: Yes Gallbladder, Orthopedic, Tubal Ligation Respiratory: No Cardiac: No 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 oz. 73.668467dk; 31.00 BMI Method:Stated General Appearance: WD/WN, no apparent distress HEENT: PERRL/EOMI, normal ENT inspection Neck: non-tender, full range of motion Respiratory: no respiratory distress, no accessory muscle use Shoulder: normal inspection, non-tender Elbow/Forearm: normal inspection, non-tender Wrist: Yes normal inspection, Yes non-tender Neurologic/Tendon: normal sensation, normal motor functions Neurologic/Psychiatric: alert, normal mood/affect, oriented x 3 Skin: normal color, warm/dry Lymphatic: No no adenopathy, No axilla node tender (R), No axilla node tender (L), No inguinal node tender (R), No inguinal node tender (L), No other There is a small laceration about 4 to 5 mm to the side of the proximal phalanx of the right thumb without active bleeding or foreign body. This will be scrubbed with chlorhexidine/saline solution and glued Progress/Results/Core Measures Results/Orders Vital Signs/I&O 12/17/20 14:38 Temp 36.4 Pulse 92 Resp 20 B/P (MAP) 137/75 (95) Pulse Ox 97 O2 Delivery Room Air Blood Pressure Mean: 95 Departure Impression Primary Impression: Thumb laceration Disposition: 01 HOME, SELF-CARE Condition: Stable Departure-Patient Inst. Decision time for Depature: 15:08 Referrals: FLORENCIO HARMON MD (PCP/Family) Primary Care Physician Patient Instructions: Laceration Repair With Glue ED Add. Discharge Instructions: 1. Return to ER for any concerns 2. Follow-up with your doctor next week to allow the glue to fall off on its own. You can shower and briefly let water run over this but do not soak this in water or apply any creams lotions or ointments to it. All discharge instructions reviewed with patient and/or family. Voiced understanding. DESHAWN CRUZ APRN Dec 17, 2020 15:09
== END 2020-12-17 15:25 | disposition home or self-care (01) ==
LOC: EDUNIT# 14:33 → ER 14:34
DX: S61.011A Laceration without foreign body of right thumb without damage to nail, initial encounter (principal); F32.9 Major depressive disorder, single episode, unspecified; Z79.899 Other long term (current) drug therapy; W25.XXXA Contact with sharp glass, initial encounter
CPT/HCPCS: 12041

== ENCOUNTER → 2021-01-13 | Outpatient (CLI) | payer OTHER ==
--- NOTE | 2021-01-13 15:29 | Diagnostic Imaging Report ---
INDICATION: Lateral ankle pain and instability after a fall one year ago. EXAMINATION: Right lower extremity MRI without contrast, 01/13/2021. FINDINGS: There is a longitudinal split tear of the peroneus brevis tendon above the level of the malleolus which extends beneath the level of the malleolus that appears intact at the insertion to the base of the 5th metatarsal. Peroneus longus tendon is intact. There is a small amount of fluid within the surrounding peroneal sheath. The flexor and extensor tendons are intact. The Achilles tendon is intact. The plantar fascia appears unremarkable. The anterior and posterior inferior tibiofibular ligaments are intact. The anterior talofibular ligament and posterior talofibular ligament intact. The deltoid ligament appears intact. The osseous structures appear unremarkable with tiny cystic changes in the mid calcaneus, simple in appearance and benign and consistent with a benign process. IMPRESSION: Longitudinal split tear of the peroneus brevis tendon, as described above, with remaining tendons and ligaments intact. Findings of surrounding tenosynovitis about the peroneal tendons also noted. Dictated by: Dictated on workstation # [id number]
== END ==
LOC: RAD 12-08 11:08
PROVIDERS: ATTEND Nurse Practitioner
DX: S86.311A Strain of muscle(s) and tendon(s) of peroneal muscle group at lower leg level, right leg, initial encounter (principal)
CPT/HCPCS: 73721

== ENCOUNTER 2021-04-22 13:27 | Emergency (ER) | payer OTHER ==
[~2021-04-22] VITALS: Ht 160 cm; Wt 87.0 kg
--- NOTE | 2021-04-22 14:54 | ED Respiratory ---
General Chief Complaint: Chest Wall Stated Complaint: FALL - 04/12 RIB PAIN Nursing Triage Note: PT AMB TO ER WITH C/O WORSENING R RIB PAIN. PT SAID SHE FELL ON 04/12 AND WAS SEEN AT [facility] WITH UNREMARKABLE XRAYS OF RIBS AT THAT TIME. PT WAS GIVEN IS TO USE AND HAS BEEN USING THAT History of Present Illness Date Seen by Provider: Apr 22, 2021 Time Seen by Provider: 13:45 Initial Comments 31-year-old female presents for right lateral rib pain. She reports that on 04/12/2021 she fell and hit her right ribs. She was wearing a boot because of recent tendon surgery on her ankle. She was seen at [facility] and started on meloxicam, x-rays were negative for fracture. She has been continuing to put ice on the area with no improvement in her symptoms. She is using incentive spirometry. She denies any other complaints. Timing/Duration: getting worse Prior Episodes/Possible Cause: no prior episodes Associated Symptoms: chest pain/soreness (Right); No cough, No fever/chills; muscle aches; No shortness of breath Allergies and Home Medications Allergies Coded Allergies: Penicillins (Verified Allergy, Unknown, RASH, 10/02/20) Patient Home Medication List Home Medication List Reviewed: Yes Acetaminophen (Acetaminophen) 500 Mg Tablet, 1,000 MG PO Q8H PRN for PAIN-MILD (1-4) Prescribed by: DAVIE BLAS on 10/02/20 1438 Budesonide/Formoterol Fumarate (Symbicort 160-4.5 Mcg Inhaler) 10.2 Gm Hfa.aer.ad, 2 PUFF IH BID, (Reported) Entered as Reported by: KAYLEEN WEINER on 10/02/20 1246 Cetirizine HCl (Zyrtec) 10 Mg Tablet, 10 MG PO DAILY, (Reported) Entered as Reported by: KAYLEEN WEINER on 10/02/20 1246 Clindamycin HCl (Clindamycin HCl) 300 Mg Capsule, 300 MG PO Q8H Prescribed by: JOSÉ SHARP on 12/13/202036 Nortriptyline HCl (Nortriptyline HCl) 10 Mg Capsule, 10 MG PO HS, (Reported) Entered as Reported by: KAYLEEN WEINER on 10/02/20 1246 Ondansetron (Ondansetron Odt) 4 Mg Tab.rapdis, 4 MG PO Q8H Prescribed by: DAVIE BLAS on 10/02/20 1623 Oxycodone Hcl (Oxyir Tablet) 5 Mg Tab, 5 MG PO Q4H PRN for PAIN-SEVERE (8-10) Prescribed by: DAVIE BLAS on 10/02/20 1438 Tramadol HCl (Tramadol HCl) 50 Mg Tablet, 50 MG PO Q6H PRN for PAIN Prescribed by: PADMA SOSA on 04/22/21 1517 [Carafate] , (Reported) Entered as Reported by: KAYLEEN WEINER on 10/02/20 1246 [Prilosec] , (Reported) Entered as Reported by: KAYLEEN WEINER on 10/02/20 124 [Vitamin B12] , (Reported) Entered as Reported by: KAYLEEN WEINER on 10/02/20 124 [Wellbutrin] , (Reported) Entered as Reported by: KAYLEEN WEINER on 10/02/20 124 Review of Systems Review of Systems Constitutional: no symptoms reported, see HPI Respiratory: see HPI, other (Right rib pain.) All Other Systems Reviewed Negative Unless Noted: Yes Past Xigjcit-Zpovnf-Feusli Hx Patient Social History Tobacco Use?: Yes Tobacco type used: Cigarettes Smoking Status: Current Everyday Smoker Substance use?: Yes Substance type: Marijuana Substance frequency: Couple times a week Alcohol Use?: Yes Alcohol type: Hard Liquor Alcohol Frequency: Daily Pt feels they are or have been: No Immunizations Up To Date Tetanus Booster (TDap): Less than 5yrs First/Initial COVID19 Vaccinat: August 2020 Second COVID19 Vaccination Lj: Sep 2020 Third COVID19 Vaccination Date: August 2020 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 Seasonal Allergies Seasonal Allergies: No Past Medical History Surgery/Hospitalization HX: ASTHMA, GERD Surgeries: Yes Gallbladder, Orthopedic, Tubal Ligation Respiratory: No Cardiac: No Neurological: No Last Menstrual Period: Apr 20, 2021 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 oz. 73.072165ps; 33.00 BMI Method:Stated General Appearance: WD/WN, mild distress (Secondary to pain) Neck: non-tender, full range of motion, supple, normal inspection Respiratory: lungs clear, normal breath sounds, no respiratory distress, other (No ecchymosis, crepitus or erythema along the lateral right ribs. Tenderness to palpation.) Cardiovascular: normal peripheral pulses, regular rate, rhythm Neurologic/Psychiatric: no motor/sensory deficits, alert, normal mood/affect, oriented x 3 Skin: normal color, warm/dry Progress/Results/Core Measures Suspected Sepsis SIRS Temperature: Pulse: 75 Respiratory Rate: 18 Blood Pressure 150 /98 Mean: 115 Results/Orders My Orders Orders - IAN,PADMA CIVIL RIGHTS INVESTIGATOR Ribs, Right 2-3 Views (04/22/21 14:44) Tramadol Tablet (Ultram Tablet) (04/22/21 14:44) Vital Signs/I&O 04/22/21 04/22/21 13:42 15:36 Temp 36.8 36.8 Pulse 75 88 Resp 18 18 B/P (MAP) 150/98 (115) 133/86 Pulse Ox 98 O2 Delivery Room Air Capillary Refill : Blood Pressure Mean: 115 Diagnostic Imaging Diagonstic Imaging: Xray Plain Films/CT/US/NM/MRI: other Reviewed: Reviewed by Me Departure Impression Primary Impression: Chest wall pain Additional Impressions: Rib pain on right side Costochondral chest pain Disposition: 01 HOME, SELF-CARE Condition: Improved Departure-Patient Inst. Decision time for Depature: 15:10 Referrals: [facility] (PCP/Family) Primary Care Physician Patient Instructions: Bruised Rib (DC), Costochondritis (DC) Add. Discharge Instructions: Use warm, moist compression to your right ribs for 10 to 20 minutes every 2 hours while awake. Keep your scheduled appointment with [facility] for tomorrow. Continue to take meloxicam once daily, take Tylenol 650 mg every 6 hours. If your pain is not controlled with these you may take tramadol 1 tablet every 8 hours. Follow-up with your primary care provider for additional pain management. You can try Icee Hote or other muscle pain ointments. Return to the emergency department for new, urgent healthcare needs. All discharge instructions reviewed with patient and/or family. Voiced understanding. Scripts Tramadol HCl (Tramadol HCl) 50 Mg Tablet 50 MG PO Q6H PRN for PAIN, #12 TAB 0 Refills Prov: PADMA SOSA 04/22/21 PADMA SOSA Apr 22, 2021 14:54
--- NOTE | 2021-04-22 15:08 | Diagnostic Imaging Report ---
INDICATION: Rib pain after fall on 04/12/2021. EXAMINATION: Right rib series, 04/22/2021. FINDINGS: Three views of the right ribs demonstrate no displaced rib fractures. The visualized lungs are clear. There is no pneumothorax. IMPRESSION: 1. No evidence for a displaced rib fracture. Dictated by: Dictated on workstation # [id number]
[2021-04-22] MEDS ORDERED: TRM50T PO (15:17)
[2021-04-22 15:36] VITALS: BP 133/86
== END 2021-04-22 15:25 | disposition home or self-care (01) ==
LOC: EDUNIT# 13:27 → ER 13:28
DX: R07.1 Chest pain on breathing (principal); R07.81 Pleurodynia; F17.210 Nicotine dependence, cigarettes, uncomplicated
CPT/HCPCS: 71100

== ENCOUNTER 2021-04-23 23:50 | Emergency (ER) | payer OTHER ==
[~2021-04-23] VITALS: Ht 160 cm; Wt 87.0 kg
[2021-04-23 23:50] VITALS: BP 128/69
[~2021-04-23 23:50] MED LIST changes: +TRM50T PO
[2021-04-24] MEDS ORDERED: TETANUS,DIPTH,PERTUSS P/F (BOOSTRIX) 0.5 ML VIAL IM ONE
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
== END 2021-04-24 00:25 | disposition other institution (70) ==
LOC: ER 23:51
DX: S60.511A Abrasion of right hand, initial encounter (principal); S80.812A Abrasion, left lower leg, initial encounter; R10.9 Unspecified abdominal pain; V89.2XXA Person injured in unspecified motor-vehicle accident, traffic, initial encounter
CPT/HCPCS: 90715; 99283

== ENCOUNTER 2021-05-24 15:15 | Emergency (ER) | payer OTHER ==
[~2021-05-24] VITALS: Ht 160 cm; Wt 86.1 kg
[2021-05-24] MEDS ORDERED: NS IV 1000 ML 1,000 ML IV SCH (15:45)
[2021-05-24] MEDS ORDERED: KETOROLAC 30 MG/ML VIAL IVP ONE (15:45)
[2021-05-24] MEDS ORDERED: LORazepam INJ 2 MG/ML (ATIVAN) VIAL IVP ONE (15:45)
--- NOTE | 2021-05-24 15:49 | ED Neurological Problem ---
General Chief Complaint: Neurological Problems Stated Complaint: STARTED RX/HAND TREMORS/TINGLING/FACIAL NUMBNESS Source: patient Exam Limitations: no limitations History of Present Illness Date Seen by Provider: May 24, 2021 Time Seen by Provider: 15:46 Initial Comments To ER by private vehicle with reports of facial numbness. She has had bilateral hand and feet tingling for about 2 weeks. This morning she felt anxious and generally unwell she laid down for a nap at about 11 AM and then awakened at about 230 or 2:45 PM with her face seemingly spasmed drawn to the left side. She does complain of a left-sided frontal headache which is typical for her migraines. She rates that at 3 out of 10. She takes Topamax that was started middle of April for the migraines. Timing/Duration: 1 week Severity: moderate Associated Symptoms: muscle spasms, paresthesia Allergies and Home Medications Allergies Coded Allergies: Penicillins (Verified Allergy, Unknown, RASH, 10/02/20) Patient Home Medication List Home Medication List Reviewed: Yes Acetaminophen (Acetaminophen) 500 Mg Tablet, 1,000 MG PO Q8H PRN for PAIN-MILD (1-4) Prescribed by: DAVIE BLAS on 10/02/20 1438 Budesonide/Formoterol Fumarate (Symbicort 160-4.5 Mcg Inhaler) 10.2 Gm Hfa.aer.ad, 2 PUFF IH BID, (Reported) Entered as Reported by: KAYLEEN WEINER on 10/02/20 1246 Cefuroxime Axetil (Cefuroxime) 250 Mg Tablet, 250 MG PO BID Prescribed by: DESHAWN CRUZ on 05/24/21 164 Cetirizine HCl (Zyrtec) 10 Mg Tablet, 10 MG PO DAILY, (Reported) Entered as Reported by: KAYLEEN WEINER on 10/02/20 1246 Clindamycin HCl (Clindamycin HCl) 300 Mg Capsule, 300 MG PO Q8H Prescribed by: JOSÉ SHARP on 12/13/202036 Lorazepam (Ativan) 1 Mg Tablet, 1 MG PO DAILY PRN for ANXIETY Prescribed by: DESHAWN CRUZ on 05/24/21 164 Metronidazole (Metronidazole) 500 Mg Tablet, 500 MG PO BID Prescribed by: DESHAWN CRUZ on 05/24/21 164 Nortriptyline HCl (Nortriptyline HCl) 10 Mg Capsule, 10 MG PO HS, (Reported) Entered as Reported by: KAYLEEN WEINER on 10/02/20 1246 Ondansetron (Ondansetron Odt) 4 Mg Tab.rapdis, 4 MG PO Q8H Prescribed by: DAVIE BLAS on 10/02/20 1623 Oxycodone Hcl (Oxyir Tablet) 5 Mg Tab, 5 MG PO Q4H PRN for PAIN-SEVERE (8-10) Prescribed by: DAVIE BLAS on 10/02/20 1438 Tramadol HCl (Tramadol HCl) 50 Mg Tablet, 50 MG PO Q6H PRN for PAIN Prescribed by: PADMA SOSA on 04/22/21 1517 [Carafate] , (Reported) Entered as Reported by: KAYLEEN WEINER on 10/02/20 124 [Prilosec] , (Reported) Entered as Reported by: KAYLEEN WEINER on 10/02/20 124 [Vitamin B12] , (Reported) Entered as Reported by: KAYLEEN WEINER on 10/02/20 124 [Wellbutrin] , (Reported) Entered as Reported by: KAYLEEN WEINER on 10/02/20 124 Review of Systems Review of Systems Constitutional: see HPI Eyes: No Symptoms Reported Ears, Nose, Mouth, Throat: no symptoms reported Respiratory: no symptoms reported Cardiovascular: no symptoms reported Genitourinary: no symptoms reported Musculoskeletal: no symptoms reported Skin: no symptoms reported Psychiatric/Neurological: See HPI, Anxiety, Headache Endocrine: No Symptoms Reported Hematologic/Lymphatic: No Symptoms Reported Past Xkulurt-Sqpqki-Xzgjaq Hx Patient Social History Tobacco Use?: Yes Tobacco type used: Cigarettes Smoking Status: Current Everyday Smoker Substance use?: Yes Substance type: Marijuana Alcohol Use?: Yes Alcohol Frequency: Once in a while Pt feels they are or have been: No Immunizations Up To Date Tetanus Booster (TDap): Less than 5yrs First/Initial COVID19 Vaccinat: August 2020 Second COVID19 Vaccination Lj: Sep 2020 Third COVID19 Vaccination Date: August 2020 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 Seasonal Allergies Seasonal Allergies: No Past Medical History Surgery/Hospitalization HX: ASTHMA, GERD, RIGHT ANKLE, TUBAL Surgeries: Yes Gallbladder, Orthopedic, Tubal Ligation Respiratory: No Cardiac: No 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 oz. 73.039174ki; 33.00 BMI Method:Stated General Appearance: WD/WN, no apparent distress, other (Anxious appearing) HEENT: PERRL/EOMI, normal ENT inspection, other (She does keep her lips nearly first on the left side but this is not consistent and is distractible.) Neck: non-tender, full range of motion Respiratory: no respiratory distress, no accessory muscle use Cardiovascular: no murmur, tachycardia Gastrointestinal: normal bowel sounds, non tender, soft Neurologic/Psychiatric: alert, normal mood/affect, oriented x 3 Crainal Nerves: normal hearing, normal speech, PERRL Coordination/Gait: normal gait Motor/Sensory: no motor deficit Skin: normal color, warm/dry Progress/Results/Core Measures Results/Orders Lab Results Laboratory Tests Test 05/24/21 15:43 05/24/21 16:05 Range/Units White Blood Count 9.2 4.3-11.0 10^3/uL Red Blood Count 4.63 3.80-5.11 10^6/uL Hemoglobin 15.7 11.5-16.0 g/dL Hematocrit 45 35-52 % Mean Corpuscular Volume 98 80-99 fL Mean Corpuscular Hemoglobin 34 25-34 pg Mean Corpuscular Hemoglobin Concent 35 32-36 g/dL Red Cell Distribution Width 13.4 10.0-14.5 % Platelet Count 267 130-400 10^3/uL Mean Platelet Volume 9.4 9.0-12.2 fL Immature Granulocyte % (Auto) 0 % Neutrophils (%) (Auto) 65 42-75 % Lymphocytes (%) (Auto) 28 12-44 % Monocytes (%) (Auto) 5 0-12 % Eosinophils (%) (Auto) 1 0-10 % Basophils (%) (Auto) 1 0-10 % Neutrophils # (Auto) 6.0 1.8-7.8 10^3/uL Lymphocytes # (Auto) 2.6 1.0-4.0 10^3/uL Monocytes # (Auto) 0.5 0.0-1.0 10^3/uL Eosinophils # (Auto) 0.1 0.0-0.3 10^3/uL Basophils # (Auto) 0.1 0.0-0.1 10^3/uL Immature Granulocyte # (Auto) 0.0 0.0-0.1 10^3/uL Sodium Level 142 135-145 MMOL/L Potassium Level 3.3 L 3.6-5.0 MMOL/L Chloride Level 106 98-107 MMOL/L Carbon Dioxide Level 22 21-32 MMOL/L Anion Gap 14 5-14 MMOL/L Blood Urea Nitrogen 8 7-18 MG/DL Creatinine 0.75 0.60-1.30 MG/DL Estimat Glomerular Filtration Rate 109 BUN/Creatinine Ratio 11 Glucose Level 100 70-105 MG/DL Calcium Level 9.4 8.5-10.1 MG/DL Corrected Calcium 9.0 8.5-10.1 MG/DL Magnesium Level 1.8 1.6-2.4 MG/DL Total Bilirubin 0.7 0.1-1.0 MG/DL Aspartate Amino Transf (AST/SGOT) 37 H 5-34 U/L Alanine Aminotransferase (ALT/SGPT) 61 H 0-55 U/L Alkaline Phosphatase 113 40-136 U/L Total Protein 7.2 6.4-8.2 GM/DL Albumin 4.5 3.2-4.5 GM/DL Thyroid Stimulating Hormone (TSH) 2.68 0.35-4.94 UIU/ML Free Thyroxine 0.90 0.70-1.48 NG/DL Serum Test, Qualitative NEGATIVE NEGATIVE Urine Color YELLOW Urine Clarity SL CLOUDY Urine pH 8.5 5-9 Urine Specific [place] 1.010 L 1.016-1.022 Urine Protein 2+ H NEGATIVE Urine Glucose (UA) NEGATIVE NEGATIVE Urine Ketones NEGATIVE NEGATIVE Urine Nitrite NEGATIVE NEGATIVE Urine Bilirubin NEGATIVE NEGATIVE Urine Urobilinogen 1.0 < = 1.0 MG/DL Urine Leukocyte Esterase 1+ H NEGATIVE Urine RBC (Auto) NEGATIVE NEGATIVE Urine RBC NONE /HPF Urine WBC 10-25 H /HPF Urine Crystals PRESENT H /LPF Urine Amorphous Sediment MOD ZAHRA PHOSPHATE H /LPF Urine Bacteria TRACE /HPF Urine Casts NONE /LPF Urine Mucus NEGATIVE /LPF Urine Trichomonas FEW H /HPF Urine Culture Indicated YES Urine Opiates Screen NEGATIVE NEGATIVE Urine Oxycodone Screen NEGATIVE NEGATIVE Urine Methadone Screen NEGATIVE NEGATIVE Urine Propoxyphene Screen NEGATIVE NEGATIVE Urine Barbiturates Screen NEGATIVE NEGATIVE Ur Tricyclic Antidepressants Screen NEGATIVE NEGATIVE Urine Phencyclidine Screen NEGATIVE NEGATIVE Urine Amphetamines Screen NEGATIVE NEGATIVE Urine Methamphetamines Screen NEGATIVE NEGATIVE Urine Benzodiazepines Screen NEGATIVE NEGATIVE Urine Cocaine Screen NEGATIVE NEGATIVE Urine Cannabinoids Screen POSITIVE H NEGATIVE My Orders Orders - DESHAWN CRUZ APRN Hcg,Qualitative Serum (05/24/21 15:44) Ct Head Wo (05/24/21 15:44) Cbc With Automated Diff (05/24/21 15:44) Comprehensive Metabolic Panel (05/24/21 15:44) Ua Culture If Indicated (05/24/21 15:44) Ed Iv/Invasive Line Start (05/24/21 15:44) Magnesium (05/24/21 15:44) Thyroid Stimulating Hormone (05/24/21 15:44) Free T4 (Free Thyroxine) (05/24/21 15:44) Drug Screen Stat (Urine) (05/24/21 15:44) Ns Iv 1000 Ml (Sodium Chloride 0.9%) (05/24/21 15:45) Ketorolac Injection (Toradol Injection) (05/24/21 15:45) Lorazepam Injection (Ativan Injection) (05/24/21 15:45) Urine Culture (05/24/21 16:05) Medications Given in ED Current Medications Medications Dose Ordered Sig/Jacqueline Route Start Time Stop Time Status Last Admin Dose Admin Ketorolac Tromethamine 15 mg ONCE ONCE IVP 05/24/21 15:45 05/24/21 15:47 DC 05/24/21 15:53 15 MG Lorazepam 1 mg ONCE ONCE IVP 05/24/21 15:45 05/24/21 15:47 DC 05/24/21 15:53 1 MG Vital Signs/I&O 05/24/21 15:15 Temp 36.5 Pulse 104 Resp 18 B/P (MAP) 168/98 (121) Pulse Ox 97 Departure Communication (Admissions) 1651-after 1 mg of lorazepam and 15 mg of Toradol the headache is gone, the tingling of the hands and the facial numbness is gone. She no longer has her face pulled off to 1 side. We will have her stop the Topamax at home and follow-up with primary care. Impression Primary Impression: UTI (urinary tract infection) Additional Impressions: Trichomoniasis Anxiety Tremor Disposition: 01 HOME, SELF-CARE Condition: Stable Departure-Patient Inst. Decision time for Depature: 16:37 Referrals: [facility] (PCP) Primary Care Physician SAMANTHA TOMPKINS APRN (Family) Primary Care Physician Patient Instructions: Trichomoniasis, Urinary Tract Infection, Adult (DC) Add. Discharge Instructions: 1. You do have evidence of urinary tract infection and trichomoniasis. Technically trichomoniasis is considered to be a sexually transmitted disease, very common and unclear how long he may have had it. Very easily treated with metronidazole 500 mg twice a day for 7 days. You should also take the Ceftin oral antibiotics for the bladder infection as well. Follow-up with your doctor next week. You might consider stopping the Topamax and ask if they could suggest another medication for you for your migraines. All discharge instructions reviewed with patient and/or family. Voiced understanding. Scripts Lorazepam (Ativan) 1 Mg Tablet 1 MG PO DAILY PRN for ANXIETY for 7 Days, #10 TAB Prov: DESHAWN CRUZ APRN 05/24/21 Metronidazole (Metronidazole) 500 Mg Tablet 500 MG PO BID, #14 TAB 0 Refills Prov: DESHAWN CRUZ APRN 05/24/21 Cefuroxime Axetil (Cefuroxime) 250 Mg Tablet 250 MG PO BID, #10 TAB Prov: DESHAWN CRUZ APRN 05/24/21 DESHAWN CRZU APRN May 24, 2021 15:49
[2021-05-24 15:52] LABS: BASOPHILS # (AUTO) 0.1 10^3/uL (0.0-0.1); BASOPHILS % (AUTO) 1 % (0-10); EOSINOPHILS # (AUTO) 0.1 10^3/uL (0.0-0.3); EOSINOPHILS % (AUTO) 1 % (0-10); HEMATOCRIT 45 % (35-52); HEMOGLOBIN 15.7 g/dL (11.5-16.0); LYMPHOCYTES # (AUTO) 2.6 10^3/uL (1.0-4.0); LYMPHOCYTES % (AUTO) 28 % (12-44); MEAN CORPUSCULAR HEMOGLOBIN 34 pg (25-34); MEAN CORPUSCULAR HGB CONC 35 g/dL (32-36); MEAN CORPUSCULAR VOLUME 98 fL (80-99); MEAN PLATELET VOLUME 9.4 fL (9.0-12.2); MONOCYTES # (AUTO) 0.5 10^3/uL (0.0-1.0); MONOCYTES % (AUTO) 5 % (0-12); NEUTROPHILS % (AUTO) 65 % (42-75); PLATELET COUNT 267 10^3/uL (130-400); WHITE BLOOD COUNT 9.2 10^3/uL (4.3-11.0)
[2021-05-24 16:07] LABS: ALBUMIN 4.5 GM/DL (3.2-4.5); POTASSIUM 3.3 MMOL/L (3.6-5.0)
[2021-05-24 16:08] LABS: CALCIUM 9.4 MG/DL (8.5-10.1)
[2021-05-24 16:09] LABS: TOTAL PROTEIN 7.2 GM/DL (6.4-8.2)
[2021-05-24 16:11] LABS: BILIRUBIN,URINE NEGATIVE (NEGATIVE); CLARITY,URINE SL CLOUDY; COLOR,URINE YELLOW; GLUCOSE, URINE (UA) NEGATIVE (NEGATIVE); KETONES,URINE NEGATIVE (NEGATIVE); LEUKOCYTE ESTERASE ,URINE 1+ (NEGATIVE); NITRITE,URINE NEGATIVE (NEGATIVE); PH,URINE 8.5 (5-9); PROTEIN,URINE 2+ (NEGATIVE)
[2021-05-24 16:11] LABS: BILIRUBIN,TOTAL 0.7 MG/DL (0.1-1.0)
[2021-05-24 16:13] LABS: CREATININE SERUM 0.75 MG/DL (0.60-1.30)
[2021-05-24 16:16] LABS: MAGNESIUM 1.8 MG/DL (1.6-2.4)
[2021-05-24 16:27] LABS: TRICHOMONAS,URINE FEW /HPF
[2021-05-24 16:30] LABS: AMORPHOUS SEDIMENT,UR MOD AMOR PHOSPHATE /LPF; BACTERIA,URINE TRACE /HPF
[2021-05-24 16:31] LABS: AMPHETAMINE SCREEN, URINE NEGATIVE (NEGATIVE); BARBITURATE SCREEN URINE NEGATIVE (NEGATIVE); BENZODIAZEPINES SCREEN URINE NEGATIVE (NEGATIVE); CANNABINOID SCREEN, URINE POSITIVE (NEGATIVE); COCAINE SCREEN URINE NEGATIVE (NEGATIVE); METHADONE STAT NEGATIVE (NEGATIVE); METHAMPHETAMINE SCREEN URINE S NEGATIVE (NEGATIVE); OPIATE SCREEN URINE NEGATIVE (NEGATIVE); OXYCODONE STAT NEGATIVE (NEGATIVE); PROPOXYPHENE STAT NEGATIVE (NEGATIVE); TRICYCLIC ANTIDEPRESSANTS SCRE NEGATIVE (NEGATIVE)
[2021-05-24 16:36] LABS: FREE T4 (FREE THYROXINE) 0.9 NG/DL (0.70-1.48)
[2021-05-24] MEDS ORDERED: CEFU250T80 PO (16:44)
[2021-05-24] MEDS ORDERED: METR-145 PO (16:44)
--- NOTE | 2021-05-24 16:44 | Diagnostic Imaging Report ---
PROCEDURE: CT head without contrast. TECHNIQUE: Multiple contiguous axial images were obtained through the brain without the use of intravenous contrast. Auto Exposure Controls were utilized during the CT exam to meet ALARA standards for radiation dose reduction. INDICATION: Left facial droop and tremor and paresthesia CT HEAD: CT images of the head were obtained. FINDINGS: Ventricles and sulci are within normal limits for size. There is no intracranial hemorrhage identified. There is no abnormal mass effect or shift of midline structures. IMPRESSION: Unremarkable CT of the head. Dictated by: Dictated on workstation # [id number]
[2021-05-24] MEDS ORDERED: LORA-404 PO (16:48)
[2021-05-24] MEDS ORDERED: LORA-405 PO (16:49)
[2021-05-24 16:55] VITALS: BP 145/89
== END 2021-05-24 16:55 | disposition home or self-care (01) ==
LOC: EDUNIT# 15:15 → ER 15:16
DX: N39.0 Urinary tract infection, site not specified (principal); A59.9 Trichomoniasis, unspecified; F41.9 Anxiety disorder, unspecified; R25.1 Tremor, unspecified; G43.909 Migraine, unspecified, not intractable, without status migrainosus; F17.210 Nicotine dependence, cigarettes, uncomplicated
CPT/HCPCS: 36415; 70450; 80053; 80306; 81000; 83735; 84439; 84443; 84703; 85025; 87077; 87088

== ENCOUNTER 2022-11-21 20:56 | Emergency (ER) | payer SELFPAY ==
[~2022-11-21] VITALS: Ht 160 cm; Wt 95.2 kg
[~2022-11-21 20:56] MED LIST changes: +CEFU250T80 PO; +LORA-404 PO; +LORA-405 PO; +METR-145 PO
--- NOTE | 2022-11-21 21:18 | ED General ---
General Chief Complaint: Psych/Social Disorder Stated Complaint: CHEST PAIN, CONGESTION, UNABLE TO SLEEP Nursing Triage Note: PT AMB TO [facility] 9 CRYING AND HYPERVENTILATING WITH CC OF ANXIETY/PANIC ATTACK. PTS MOTHER STATES THAT PT IS IN [facility]. PT IS CURRENTLY OUT OF ANXIETY MEDS. 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 Source of Information: Patient Exam Limitations: No Limitations (ALIRIO RANDLE) History of Present Illness Date Seen by Provider: Nov 21, 2022 Time Seen by Provider: 21:16 Initial Comments Patient is a 32-year-old female with a history of anxiety who presents to the ED with anxiety. Patient states symptoms over the past week. Patient's been having several panic attacks. Has been on hydroxyzine in the past but when she takes the medication it causes nightmares at night. She states her is in penitentiary. Increase stress fluid at home. She states she feels anxious. She is hyperventilating on arrival very tearful. Patient denies of any cough, runny nose, fever, chills, vomiting or diarrhea. She did have symptoms of that last week without improved. She does see a provider for her anxiety. Denies any drug use or alcohol use. Denies of any suicidal or homicidal thoughts. (ALIRIO RANDLE) Allergies and Home Medications Allergies Coded Allergies: Penicillins (Verified Allergy, Unknown, RASH, 10/02/20) Patient Home Medication List Home Medication List Reviewed: Yes (ALIRIO RANDLE) Acetaminophen (Acetaminophen) 500 Mg Tablet, 1,000 MG PO Q8H PRN for PAIN-MILD (1-4) Prescribed by: DAVIE BLAS on 10/02/20 1438 Budesonide/Formoterol Fumarate (Symbicort 160-4.5 Mcg Inhaler) 10.2 Gm Hfa.aer.ad, 2 PUFF IH BID, (Reported) Entered as Reported by: KAYLEEN WIENER on 10/02/20 1246 Cefuroxime Axetil (Cefuroxime) 250 Mg Tablet, 250 MG PO BID Prescribed by: DESHAWN CRUZ on 05/24/21 1644 Cetirizine HCl (Zyrtec) 10 Mg Tablet, 10 MG PO DAILY, (Reported) Entered as Reported by: KAYLEEN WEINER on 10/02/20 1246 Clindamycin HCl (Clindamycin HCl) 300 Mg Capsule, 300 MG PO Q8H Prescribed by: JOSÉ SHARP on 12/13/202036 Lorazepam (Ativan) 1 Mg Tablet, 1 MG PO DAILY PRN for ANXIETY Prescribed by: DESHAWN CRUZ on 05/24/21 164 Lorazepam (Ativan) 0.5 Mg Tablet, 0.5 MG PO BID PRN for ANXIETY Prescribed by: MAYRA GRIFFITH on 11/21/22 221 Metronidazole (Metronidazole) 500 Mg Tablet, 500 MG PO BID Prescribed by: DESHAWN CRUZ on 05/24/21 164 Nortriptyline HCl (Nortriptyline HCl) 10 Mg Capsule, 10 MG PO HS, (Reported) Entered as Reported by: KAYLEEN WEINER on 10/02/20 124 Ondansetron (Ondansetron Odt) 4 Mg Tab.rapdis, 4 MG PO Q8H Prescribed by: DAVIE BLAS on 10/02/20 1623 Oxycodone Hcl (Oxyir Tablet) 5 Mg Tab, 5 MG PO Q4H PRN for PAIN-SEVERE (8-10) Prescribed by: DAVIE BLAS on 10/02/20 1438 Tramadol HCl (Tramadol HCl) 50 Mg Tablet, 50 MG PO Q6H PRN for PAIN Prescribed by: PADMA SOSA on 04/22/21 1517 [Carafate] , (Reported) Entered as Reported by: KAYLEEN WEINER on 10/02/20 124 [Prilosec] , (Reported) Entered as Reported by: KAYLEEN WEINER on 10/02/20 124 [Vitamin B12] , (Reported) Entered as Reported by: KAYLEEN WEINER on 10/02/20 124 [Wellbutrin] , (Reported) Entered as Reported by: KAYLEEN WEINER on 10/02/20 124 Review of Systems Review of Systems Constitutional: No chills, No diaphoresis, No malaise, No weakness EENTM: No ear pain, No blurred vision, No double vision Respiratory: No cough, No dyspnea on exertion; short of breath Cardiovascular: chest pain Gastrointestinal: No abdominal pain, No diarrhea, No nausea, No vomiting Genitourinary: No decreased output, No discharge Musculoskeletal: No back pain, No joint pain Skin: No change in color, No change in hair/nails Psychiatric/Neurological: Anxiety (ALIRIO RANDLE) All Other Systems Reviewed Negative Unless Noted: Yes (ALIRIO RANDLE) Past Pitipmo-Crarbp-Tchxmd Hx Patient Social History Tobacco Use?: Yes Tobacco type used: Cigarettes Substance use?: Unable to obtain Alcohol Use?: Yes (ALIRIO RANDLE) Immunizations Up To Date Tetanus Booster (TDap): Less than 5yrs First/Initial COVID19 Vaccinat: August 2020 Second COVID19 Vaccination Lj: Sep 2020 Third COVID19 Vaccination Date: August 2020 (ALIRIO RANDLE) Seasonal Allergies Seasonal Allergies: No (ALIRIO RANDLE) Past Medical History Surgery/Hospitalization HX: ASTHMA, GERD, RIGHT ANKLE, TUBAL Surgeries: Yes Gallbladder, Orthopedic, Tubal Ligation Respiratory: No Cardiac: No 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 oz. 73.573525tc; 37.00 BMI Method:Stated General Appearance: No Apparent Distress, WD/WN Eyes: Bilateral Eye Normal Inspection, Bilateral Eye PERRL, Bilateral Eye EOMI HEENT: PERRL/EOMI, TMs Normal, Normal ENT Inspection, Pharynx Normal Neck: Full Range of Motion, Normal Inspection, Non Tender, Supple Respiratory: Chest Non Tender, Lungs Clear, Normal Breath Sounds, No Accessory Muscle Use, No Respiratory Distress Cardiovascular: Regular Rate, Rhythm, No Edema, No Gallop, No JVD Gastrointestinal: Normal Bowel Sounds, No Organomegaly, No Pulsatile Mass, Non Tender Back: Normal Inspection, No CVA Tenderness, No Vertebral Tenderness Extremity: Normal Capillary Refill, Normal Inspection, Normal Range of Motion, Non Tender Neurologic/Psychiatric: Alert, Oriented x3, No Motor/Sensory Deficits, Normal 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, 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 Skin: Normal Color, Warm/Dry (ALIRIO RANDLE) Progress/Results/Core Measures Suspected Sepsis SIRS Temperature: Pulse: 132 Respiratory Rate: Blood Pressure 148 /135 Mean: 139 (ALIRIO RANDLE) Results/Orders Medications Given in ED Current Medications Medications Dose Ordered Sig/Jacqueline Route Start Time Stop Time Status Last Admin Dose Admin Lorazepam 2 mg STK-MED ONCE .ROUTE 11/21/22 21:05 11/21/22 21:08 DC 11/21/22 21:12 1 MG (KAITLIN GOMEZ MD) Vital Signs/I&O 11/21/22 11/21/22 21:04 22:32 Pulse 132 109 B/P (MAP) 148/135 (139) 111/71 Pulse Ox 97 O2 Delivery Room Air (KAITLIN GOMEZ MD) Vital Signs/I&O Capillary Refill : (ALIRIO RANDLE) Blood Pressure Mean: 139 Departure Communication (PCP) Patient appears anxious. Hyperventilating on arrival. She is crying. No wheezing. She denies cough, runny nose, sore throat, ear pain. Takes hydroxyzine for her anxiety but states she stopped the medication 2 days ago as this medication has been giving her nightmares. Patient states she has been under a lot of stress. Her is in penitentiary. She reports chest tightness and shortness of breath since she found out he went to penitentiary which has been over the past week. I Was able to control her breathing. Did give her a dose of IM Ativan 1 mg with improvement. I did obtain an EKG and chest x-ray which did note sinus tachycardia. Chest x-ray was negative for pneumonia, pneumothorax. No recent travels or surgeries. No known cardiac history. She denies of any drug use or alcohol use. Denies of any suicidal or homicidal thoughts. She does follow-up with community health at [facility]. She is requesting something until she can follow-up with her provider. We will provide a few days worth of Ativan as needed at a low dose. Discussed other ways to manage your anxiety and panic attack without medication. Not concern for cardiac. Reassurance and patient education. If any worsening symptoms return back to ED. Avoid the hydroxyzine. (ALIRIO RANDLE) Impression Primary Impression: Anxiety Disposition: 01 HOME, SELF-CARE Condition: Stable Departure-Patient Inst. Decision time for Depature: 22:09 (ALIRIO RANDLE) Referrals: [facility]/ (PCP) Primary Care Physician SAMANTHA TOMPKINS APRN (Family) Primary Care Physician Patient Instructions: Anxiety, Adult (DC) Add. Discharge Instructions: Recommend following up with your primary care physician for further evaluation. Discussed change in medication. All discharge instructions reviewed with patient and/or family. Voiced understanding. Scripts Lorazepam (Ativan) 0.5 Mg Tablet 0.5 MG PO BID PRN for ANXIETY, #6 TAB Prov: ALIRIO RANDLE 11/21/22 ATTENDING PHYSICIAN NOTE: I was physically present as attending physician in the emergency department during the care of this patient, but I was not directly involved in the decision making or delivery of care for this patient. (KAITLIN GOMEZ MD) ALIRIO RANDLE Nov 21, 2022 21:18 KAITLIN GOMEZ MD Nov 22, 2022 03:13
--- NOTE | 2022-11-21 21:34 | Diagnostic Imaging Report ---
CHEST 1 VIEW, AP/PA ONLY Indication: Chest pain. Comparison: None available. Findings: No focal airspace disease in the visualized lungs. No pleural effusion or pneumothorax. Normal cardiomediastinal silhouette. Impression: 1. No acute cardiopulmonary process by portable radiography. Dictated by: Dictated on workstation # [id number]
[2022-11-21] MEDS ORDERED: LORA-404 PO (22:10)
[2022-11-21 22:32] VITALS: BP 111/71
[2022-11-22] MEDS ORDERED: LACTATED RINGERS IV ONE (02:18)
== END 2022-11-21 22:34 | disposition home or self-care (01) ==
LOC: EDUNIT# 20:56 → ER 21:00
DX: F41.9 Anxiety disorder, unspecified (principal); R00.0 Tachycardia, unspecified; F17.210 Nicotine dependence, cigarettes, uncomplicated
CPT/HCPCS: 71045; 93005

== ENCOUNTER 2022-12-16 23:37 | Emergency (ER) | payer SELFPAY ==
[~2022-12-16] VITALS: Ht 160 cm; Wt 87.2 kg
[2022-12-17 00:03] LABS: BASOPHILS # (AUTO) 0.1 10^3/uL (0.0-0.1); BASOPHILS % (AUTO) 1 % (0-10); EOSINOPHILS # (AUTO) 0.2 10^3/uL (0.0-0.3); EOSINOPHILS % (AUTO) 2 % (0-10); HEMATOCRIT 42 % (35-52); LYMPHOCYTES # (AUTO) 3.3 10^3/uL (1.0-4.0); LYMPHOCYTES % (AUTO) 33 % (12-44); MEAN CORPUSCULAR HEMOGLOBIN 34 pg (25-34); MEAN CORPUSCULAR HGB CONC 35 g/dL (32-36); MEAN CORPUSCULAR VOLUME 96 fL (80-99); MEAN PLATELET VOLUME 9.4 fL (9.0-12.2); MONOCYTES # (AUTO) 0.5 10^3/uL (0.0-1.0); MONOCYTES % (AUTO) 5 % (0-12); NEUTROPHILS % (AUTO) 60 % (42-75); PLATELET COUNT 253 10^3/uL (130-400); WHITE BLOOD COUNT 10.1 10^3/uL (4.3-11.0)
[2022-12-17 00:08] LABS: CLARITY,URINE CLEAR; COLOR,URINE YELLOW; PH,URINE 6.5 (5-9)
[2022-12-17 00:09] LABS: BACTERIA,URINE FEW /HPF; BILIRUBIN,URINE NEGATIVE (NEGATIVE); GLUCOSE, URINE (UA) NEGATIVE (NEGATIVE); KETONES,URINE NEGATIVE (NEGATIVE); LEUKOCYTE ESTERASE ,URINE TRACE (NEGATIVE); NITRITE,URINE NEGATIVE (NEGATIVE); PROTEIN,URINE NEGATIVE (NEGATIVE); RBC,URINE RARE /HPF
[2022-12-17 00:12] LABS: AMPHETAMINE SCREEN, URINE NEGATIVE (NEGATIVE); BARBITURATE SCREEN URINE NEGATIVE (NEGATIVE); CANNABINOID SCREEN, URINE POSITIVE (NEGATIVE); COCAINE SCREEN URINE NEGATIVE (NEGATIVE); METHADONE STAT NEGATIVE (NEGATIVE); OPIATE SCREEN URINE NEGATIVE (NEGATIVE); OXYCODONE STAT NEGATIVE (NEGATIVE); TRICYCLIC ANTIDEPRESSANTS SCRE NEGATIVE (NEGATIVE)
[2022-12-17 00:34] LABS: ALANINE AMINOTRANSFERASE 43 U/L (0-55); ALBUMIN 4.6 GM/DL (3.2-4.5); ALKALINE PHOSPHATASE 95 U/L (40-136); BILIRUBIN,TOTAL 0.4 MG/DL (0.1-1.0); BUN/CREATININE RATIO 11; CALCIUM 9.4 MG/DL (8.5-10.1); CARBON DIOXIDE 20 MMOL/L (21-32); CHLORIDE 109 MMOL/L (98-107); CREATININE SERUM 0.72 MG/DL (0.60-1.30); GFR ESTIMATED 114; GLUCOSE 100 MG/DL (70-105); POTASSIUM 3.4 MMOL/L (3.6-5.0); SODIUM 144 MMOL/L (135-145); TOTAL PROTEIN 7.2 GM/DL (6.4-8.2)
[2022-12-17 00:36] LABS: ACETAMINOPHEN < 10 UG/ML (10-30)
--- NOTE | 2022-12-17 00:51 | ED Psychosocial ---
General Chief Complaint: Psych/Social Disorder Stated Complaint: PANIC ATTACH Nursing Triage Note: pt to ed per ems with c/o panic attack. states she was at a today and started getting axious around 1500, having pain down her arm and in her hand. states she had run out of her anxiety medications and was taking an old rx that she had of hydroxyzine Source: patient History of Present Illness Date Seen by Provider: Dec 16, 2022 Time Seen by Provider: 23:40 Initial Comments PT ARRIVES VIA EMS C/O "PANIC ATTACK" PT HAS HISTORY OF ANXIETY, AND HAS BEEN OUT OF HER HYDROXYZINE. SHE HAS NEW RX AT PHARMACY, BUT HAS NOT PICKED IT UP YET. SHE LATER STATES SHE FOUND AN OLD PRESCRIPTION AND TOOK ONE DOSE OF HYDROXYZINE THIS EVENING. SHE WAS AT A TODAY, AND BEGAN FEELING ANXIOUS AROUND 1500 SHE HAS HAD "5 SHOOTERS" OF ALCOHOL TONIGHT AND HAS BEEN DRINKING "ENERGY DRINKS" TODAY SHE HAS HAD SOME CHEST TIGHTNESS, FEELING A LITTLE SHORT OF BREATH AND HER HANDS AND FINGERS HAVE BEEN TINGLY. THESE SYMPTOMS ARE GONE AT THIS TIME LMP--NOW. S/P BTL PCP: JAMIR-K Allergies and Home Medications Allergies Coded Allergies: Penicillins (Verified Allergy, Unknown, RASH, 10/02/20) Patient Home Medication List Home Medication List Reviewed: Yes Acetaminophen (Acetaminophen) 500 Mg Tablet, 1,000 MG PO Q8H PRN for PAIN-MILD (1-4) Prescribed by: DAVIE BLAS on 10/02/20 1438 Budesonide/Formoterol Fumarate (Symbicort 160-4.5 Mcg Inhaler) 10.2 Gm Hfa.aer.ad, 2 PUFF IH BID, (Reported) Entered as Reported by: KAYLEEN WEINER on 10/02/20 1246 Cefuroxime Axetil (Cefuroxime) 250 Mg Tablet, 250 MG PO BID Prescribed by: DESHAWN CRUZ on 05/24/21 1644 Cetirizine HCl (Zyrtec) 10 Mg Tablet, 10 MG PO DAILY, (Reported) Entered as Reported by: KAYLEEN WEINER on 10/02/20 1246 Clindamycin HCl (Clindamycin HCl) 300 Mg Capsule, 300 MG PO Q8H Prescribed by: JOSÉ SHARP on 12/13/202036 Lorazepam (Ativan) 1 Mg Tablet, 1 MG PO DAILY PRN for ANXIETY Prescribed by: DESHAWN CRUZ on 05/24/21 1649 Lorazepam (Ativan) 0.5 Mg Tablet, 0.5 MG PO BID PRN for ANXIETY Prescribed by: MAYRA GRIFFITH on 11/21/22 2211 Metronidazole (Metronidazole) 500 Mg Tablet, 500 MG PO BID Prescribed by: DESHAWN CRUZ on 05/24/21 1644 Nortriptyline HCl (Nortriptyline HCl) 10 Mg Capsule, 10 MG PO HS, (Reported) Entered as Reported by: KAYLEEN WEINER on 10/02/20 1246 Ondansetron (Ondansetron Odt) 4 Mg Tab.rapdis, 4 MG PO Q8H Prescribed by: DAVIE BLAS on 10/02/20 1623 Oxycodone Hcl (Oxyir Tablet) 5 Mg Tab, 5 MG PO Q4H PRN for PAIN-SEVERE (8-10) Prescribed by: DAVIE BLAS on 10/02/20 1438 Tramadol HCl (Tramadol HCl) 50 Mg Tablet, 50 MG PO Q6H PRN for PAIN Prescribed by: PADMA SOSA on 04/22/21 1517 [Carafate] , (Reported) Entered as Reported by: KAYLEEN WEINER on 10/02/20 124 [Prilosec] , (Reported) Entered as Reported by: KAYLEEN WEINER on 10/02/20 124 [Vitamin B12] , (Reported) Entered as Reported by: KAYLEEN WEINER on 10/02/20 124 [Wellbutrin] , (Reported) Entered as Reported by: KAYLEEN WEINER on 10/02/20 124 Review of Systems Constitutional: no symptoms reported Respiratory: see HPI Cardiovascular: see HPI Gastrointestinal: no symptoms reported Genitourinary: no symptoms reported Musculoskeletal: no symptoms reported Skin: no symptoms reported Psychiatric/Neurological: See HPI Past Riyucwl-Cvcphu-Rbvxxj Hx Patient Social History Tobacco Use?: Yes Tobacco type used: Cigarettes Smoking Status: Current Everyday Smoker Substance use?: Yes Substance type: Marijuana Alcohol Use?: Yes Immunizations Up To Date Tetanus Booster (TDap): Less than 5yrs First/Initial COVID19 Vaccinat: August 2020 Second COVID19 Vaccination Lj: Sep 2020 Third COVID19 Vaccination Date: August 2020 Seasonal Allergies Seasonal Allergies: No Past Medical History Surgery/Hospitalization HX: ASTHMA, GERD, RIGHT ANKLE, TUBAL Surgeries: Yes Gallbladder, Orthopedic, Tubal Ligation Respiratory: Yes Asthma Cardiac: No Neurological: No Female Reproductive Disorders: Denies DIRECTOR PUBLIC History: Tubal Ligation Genitourinary: No Gastrointestinal: Yes Gastroesophageal Reflux Musculoskeletal: No Endocrine: No HEENT: No Cancer: No Psychosocial: Yes Anxiety, Depression Integumentary: Yes (multiple i/d, multiple MRSA abscesses) Blood Disorders: No Physical Exam Vital Signs - First Documented 12/16/22 23:40 Temp 36.8 Pulse 115 Resp 30 B/P (MAP) 135/89 (104) Pulse Ox 97 O2 Delivery Room Air Capillary Refill : Less Than 3 Seconds Height, Weight, BMI Height: '" Weight: 163lbs. oz. 73.117602id; 34.00 BMI Method:Stated General Appearance: WD/WN, no apparent distress, other (ANXIOUS, STRONG ODOR OF ETOH) Neck: normal inspection Respiratory: normal breath sounds, no respiratory distress, no accessory muscle use Cardiovascular: no murmur, tachycardia (110'S) Gastrointestinal: non tender, soft Extremities: normal inspection, normal capillary refill Neurologic/Psychiatric: no motor/sensory deficits, alert, oriented x 3 Behavior/Eye Contact: cooperative, normal speech Thoughts/Hallucinations: no apparent hallucination Skin: normal color, warm/dry Progress/Results/Core Measures Results/Orders Lab Results My Orders Vital Signs/I&O Blood Pressure Mean: 104 Progress Progress Note : Progress Note VITALS ON ARRIVAL: TEMP 36.8=98.2, HR 115, RR 30, BP 135/89, O2 SAT 97% ON ROOM AIR LABS: -CBC NORMAL -CMP UNREMARKABLE -HCG NEGATIVE -ETOH 227 -UDS + THC 0050--PT HAS RIPPED OUT HER IV AND STORMED OUT OF ER WITHOUT EXPLANATION OR INSTRUCTIONS. Departure Impression Primary Impression: Anxiety Additional Impressions: Alcohol intoxication Marijuana use Disposition: 01 HOME, SELF-CARE Condition: Stable Departure-Patient Inst. Decision time for Depature: 00:50 Referrals: [facility] (PCP/Family) Primary Care Physician Patient Instructions: ALCOHOL AND SUBSTANCE ABUSE, Anxiety, Adult ED Add. Discharge Instructions: NO ALCOHOL NO MARIJUANA OR OTHER DRUGS NO CAFFEINE OR ENERGY DRINKS OR STIMULANTS TAKE YOUR PRESCRIBED MEDICATIONS INSTRUCTED FOLLOW UP WITH [facility] FOR FURTHER CARE--CALL IN THE MORNING TO SCHEDULE AN APPOINTMENT All discharge instructions reviewed with patient and/or family. Voiced understanding. SANJIV SAMOSN DO Dec 17, 2022 00:51
[2022-12-17 01:03] VITALS: BP 129/74
== END 2022-12-17 01:03 | disposition home or self-care (01) ==
LOC: EDUNIT# 23:37 → ER 23:38
DX: F41.9 Anxiety disorder, unspecified (principal); F10.129 Alcohol abuse with intoxication, unspecified; L10.4 Pemphigus erythematosus; F12.90 Cannabis use, unspecified, uncomplicated; F17.210 Nicotine dependence, cigarettes, uncomplicated; Y90.7 Blood alcohol level of 200-239 mg/100 ml
CPT/HCPCS: 80053; 80306; 81000; 84703; 85025; 99284; G0480 ×2; 36415; 80320; 80329